=== PATIENT | female | born 1960 | race Caucasian/White ===

== ENCOUNTER → 2017-04-22 | Outpatient (CLI) | payer OTHER ==
--- NOTE | 2017-04-22 11:11 | REPMRS ---
Patient History The patient states she had a clinical breast exam in 04/09 Family history of breast cancer in paternal cousin under age 50 and prostate cancer in paternal uncle at age 50 or over. Digital Woman Screen Mammo: April 22, 2017 - Exam #: [id number] Bilateral CC and MLO view(s) were taken. Technologist: Leah Gonzalez, Technologist Prior study comparison: December 27, 2015, digital woman screen mammo performed at [facility]. October 18, 2014, digital woman screen mammo performed at [facility]. August 01, 2013, digital woman screen mammo performed at [facility]. FINDINGS: The breast tissue is almost entirely fat. There has been no change in the appearance of the mammogram from the prior studies. There is no interval development of dominant mass, architectural distortion, or clustered microcalcification typical of malignancy. ASSESSMENT: BI-RADS/ACR category 1 mammogram. Negative. Recommendation Routine screening mammogram of both breasts in 1 year (for women over age 40). This mammogram was interpreted with the aid of an FDA-approved computer-aided dectection system. Electronically Signed By: Diego Dang MD 04/22/17 1111
== END ==
LOC: M WHC 09:55
PROVIDERS: ATTEND Nurse Practitioner Family
DX: Z12.31 Encounter for screening mammogram for malignant neoplasm of breast (principal)

== ENCOUNTER → 2018-02-21 | Outpatient (CLI) | payer OTHER ==
[~2018-02-21] MED LIST: ISOVUE-370 76% 100ML VIAL (Q9967) As Ordered
== END ==
LOC: M RAD 14:16
DX: Z86.711 Personal history of pulmonary embolism (principal)
CPT/HCPCS: Q9967

== ENCOUNTER → 2018-04-25 | Outpatient (CLI) | payer OTHER | LOC: M WHC 09:56 | DX: Z12.31 Encounter for screening mammogram for malignant neoplasm of breast (principal) | CPT/HCPCS: 77067 ==

== ENCOUNTER → 2018-04-25 | Outpatient (REF) | payer OTHER ==
[2018-04-28 00:07] LABS: HPV HYBRID CAPTURE II Negative (Negative)
== END ==
LOC: M SFHCWAGY 10:40
DX: Z12.4 Encounter for screening for malignant neoplasm of cervix (principal)
CPT/HCPCS: 88142

== ENCOUNTER → 2019-06-07 | Outpatient (CLI) | payer OTHER ==
--- NOTE | 2019-06-07 16:31 | REPMRS ---
Patient History The patient states she had a clinical breast exam in May 2019.Family history of prostate cancer at age 50 or over in paternal uncle, breast cancer under age 50 in paternal cousin. No Hormone Replacement Therapy Digital Woman Screen Mammo: June 07, 2019 - Exam #: [id number] Bilateral CC and MLO view(s) were taken. Technologist: Gia Armijo, Technologist Prior study comparison: April 25, 2018, bilateral digital woman screen mammo performed at [facility]. April 22, 2017, digital woman screen mammo performed at [facility]. December 27, 2015, digital woman screen mammo performed at [facility]. FINDINGS: There are scattered fibroglandular densities. There has been no change in the appearance of the mammogram from the prior studies. There is a mild amount of scattered fibroglandular density which is fairly symmetric. There is no interval development of dominant mass, architectural distortion, or grouped microcalcification suggestive of malignancy. 3-D tomosynthesis shows no additional findings. Assessment: BI-RADS/ACR category 1 mammogram. Negative Mammogram. Recommendation Routine screening mammogram of both breasts in 1 year (for women over age 40). This patient's Lifetime Breast Cancer Risk is estimated at 8.3 %. This mammogram was interpreted with the aid of an FDA-approved computer-aided dectection system. Electronically Signed By: Diego Dang MD 06/07/19 [id number]
== END ==
LOC: M WHC 13:28
PROVIDERS: ATTEND Nurse Practitioner Family
DX: Z12.31 Encounter for screening mammogram for malignant neoplasm of breast (principal)

== ENCOUNTER → 2020-06-10 | Outpatient (CLI) | payer OTHER ==
--- NOTE | 2020-06-10 17:04 | REPMRS ---
Patient History The patient states she had a clinical breast exam in May 2020. Family history of prostate cancer at age 50 or over in paternal uncle, breast cancer under age 50 in paternal cousin. No Hormone Replacement Therapy 3D TOMOSYNTHESIS WAS PERFORMED. [facility] Volpara breast density a. Digital Woman Screen Mammo: June 10, 2020 - Exam #: [id number] Bilateral CC and MLO view(s) were taken. Technologist: Leslie Hahn, Technologist Prior study comparison: June 07, 2019, bilateral digital woman screen mammo performed at [facility]. April 25, 2018, bilateral digital woman screen mammo performed at [facility]. FINDINGS: There are scattered fibroglandular densities. There has been no change in the appearance of the mammogram from the prior studies. There is a mild amount of residual fibroglandular tissue which is fairly symmetric. There is no interval development of dominant mass, architectural distortion, or clustered microcalcification suggestive of malignancy. Assessment: BI-RADS/ACR category 1 mammogram. Negative Mammogram. Recommendation Routine screening mammogram in 1 year (for women over age 40). This mammogram was interpreted with the aid of an FDA-approved computer-aided dectection system. Electronically Signed By: Oscar Shah MD 06/10/20 [id number]
== END ==
LOC: M WHC 12:57
PROVIDERS: ATTEND Nurse Practitioner Family
DX: Z12.31 Encounter for screening mammogram for malignant neoplasm of breast (principal)

== ENCOUNTER → 2020-10-28 | Outpatient (CLI) | payer OTHER ==
[~2020-10-28] MED LIST changes: +ACET32TAB PO; +FAMO1TAB11 PO; +FLAX1CAP5 PO; +HYDR-3490 PO; +HYDR-3910 PO; -ISOVUE-370 76% 100ML VIAL (Q9967) As Ordered; +LOSA100T50 PO; +SPIR-10 PO; +VENTAER INH; +VITMTA PO
== END ==
LOC: M LABSMTC 09:35
PROVIDERS: ATTEND Anesthesiology
DX: Z01.812 Encounter for preprocedural laboratory examination (principal); Z20.822 Contact with and (suspected) exposure to COVID-19

== ENCOUNTER 2020-11-01 08:55 | Day surgery (SDC) | payer OTHER ==
[~2020-11-01] VITALS: Ht 170.2 cm; Wt 148.8 kg
[~2020-11-01 08:55] MED LIST changes: +NS 1,000 ML IV ONE
[2020-11-01 11:45] VITALS: BP 138/70
--- NOTE | 2020-11-01 12:00 | ROOR ---
Patient Name: Rebecca Sequeira Procedure Date: 11/01/2020 10:38 AM Date of : 1960 Age: 60 Room: [facility] Gender: Female Note Status: Finalized Procedure: Colonoscopy Indications: Screening for colorectal malignant neoplasm, Incidental - Hematochezia Providers: Maximus Robledo MD Referring MD: Michaelle Kong NP Requesting Provider: Medicines: Monitored Anesthesia Care Complications: No immediate complications. Procedure: Pre-Anesthesia Assessment: - Prior to the procedure, a History and Physical was performed, and patient medications and allergies were reviewed. The patient is competent. The risks and benefits of the procedure and the sedation options and risks were discussed with the patient. All questions were answered and informed consent was obtained. Patient identification and proposed procedure were verified by the physician, the nurse and the anesthesiologist in the procedure room. Mental Status Examination: alert and oriented. Airway Examination: normal oropharyngeal airway and neck mobility. Respiratory Examination: clear to auscultation. CV Examination: normal. Prophylactic Antibiotics: The patient does not require prophylactic antibiotics. Prior Anticoagulants: The patient has taken no previous anticoagulant or antiplatelet agents. ASA Grade Assessment: III - A patient with severe systemic disease. After reviewing the risks and benefits, the patient was deemed in satisfactory condition to undergo the procedure. The anesthesia plan was to use monitored anesthesia care (MAC). Immediately prior to administration of medications, the patient was re-assessed for adequacy to receive sedatives. The heart rate, respiratory rate, oxygen saturations, blood pressure, adequacy of pulmonary ventilation, and response to care were monitored throughout the procedure. The physical status of the patient was re-assessed after the procedure. The Colonoscope was introduced through the anus and advanced to the terminal ileum, with identification of the appendiceal orifice and IC valve. The colonoscopy was performed without difficulty. The patient tolerated the procedure well. The quality of the bowel preparation was good. The terminal ileum, ileocecal valve, appendiceal orifice, and rectum were photographed. Scope insertion time was 2 minutes. Scope withdrawal time was 9 minutes. The total duration of the procedure was 12 minutes. Findings: The digital rectal exam revealed a firm rectal mass palpated 3.0 cm from the anal verge. The mass was non-circumferential and located predominantly at the anterior bowel wall. The terminal ileum appeared normal. Two sessile polyps were found in the sigmoid colon and ascending colon. The polyps were 4 to 12 mm in size. These polyps were removed with a hot snare. Resection and retrieval were complete. Verification of patient identification for the specimen was done by the physician and nurse using the patient's name, date and medical record number. Estimated blood loss was minimal. A frond-like/villous, infiltrative and ulcerated non-obstructing large mass was found in the rectum and at 3 cm proximal to the anus. The mass was partially circumferential (involving one-third of the lumen circumference). The mass measured six cm in length. In addition, its diameter measured four mm. Oozing was present. Biopsies were taken with a cold forceps for histology. Non-bleeding external and internal hemorrhoids were found during retroflexion. The hemorrhoids were medium-sized. Impression: - Rectal mass 3.0 cm from the anal verge. - The examined portion of the ileum was normal. - Two 4 to 12 mm polyps in the sigmoid colon and in the ascending colon, removed with a hot snare. Resected and retrieved. - Likely malignant tumor in the rectum and at 3 cm proximal to the anus. Biopsied. - Non-bleeding external and internal hemorrhoids. Recommendation: - Patient has a contact number available for emergencies. The signs and symptoms of potential delayed complications were discussed with the patient. Return to normal activities tomorrow. Written discharge instructions were provided to the patient. - High fiber diet. - Continue present medications. - Await pathology results. - Refer to an oncologist in 1 week. - Refer to a radiation oncologist in 1 week. - Perform magnetic resonance imaging (MRI) with gadolinium or rectal EUS depending on ONcology evaluation. - Refer to a colo-rectal surgeon in 1 week. - Repeat colonoscopy in 1 year per protocol and for surveillance. - Telephone GI clinic for pathology results in 1 week. - Telephone GI clinic if symptomatic if persistent symptoms or new symptoms. - Return to primary care physician. Procedure Code(s): --- Professional --- 84969, Colonoscopy, flexible; with removal of tumor(s), polyp(s), or other lesion(s) by snare technique 15352, 59, Colonoscopy, flexible; with biopsy, single or multiple Diagnosis Code(s): --- Professional --- Z12.11, Encounter for screening for malignant neoplasm of colon K62.89, Other specified diseases of anus and rectum K64.8, Other hemorrhoids K63.5, Polyp of colon D49.0, Neoplasm of unspecified behavior of digestive system CPT copyright 2019 [employer]. All rights reserved. The codes documented in this report are preliminary and upon hitting coach review may be revised to meet current compliance requirements. Maximus Robledo MD Maximus Robledo MD 11/01/2020 12:00:40 PM Electronically signed by Maximus Robledo MD Number of Addenda: 0 Note Initiated On: 11/01/2020 10:38 AM Estimated Blood Loss: Estimated blood loss was minimal.
== END 2020-11-01 12:04 | disposition home or self-care (01) ==
LOC: M OPP 08:55
PROVIDERS: ATTEND Internal Medicine Gastroenterology
DX: Z12.11 Encounter for screening for malignant neoplasm of colon (principal); D12.2 Benign neoplasm of ascending colon; D12.5 Benign neoplasm of sigmoid colon; C20 Malignant neoplasm of rectum; K64.8 Other hemorrhoids; Z79.899 Other long term (current) drug therapy; Z88.8 Allergy status to other drugs, medicaments and biological substances; Z91.040 Latex allergy status; Z86.711 Personal history of pulmonary embolism; Z85.07 Personal history of malignant neoplasm of pancreas; Z80.1 Family history of malignant neoplasm of trachea, bronchus and lung; Z80.3 Family history of malignant neoplasm of breast; Z80.42 Family history of malignant neoplasm of prostate

== ENCOUNTER → 2020-11-15 | Outpatient (CLI) | payer OTHER ==
[~2020-11-15] MED LIST changes: +LORA-674 PO; -NS 1,000 ML IV ONE
--- NOTE | 2020-11-15 15:56 | RADONC.CN ---
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 She is seen for consideration of neoadjuvant chemoradiation. Diagnosis/Treatment History Oncologic History Presented to [facility] in August 2020 with several months of rectal pressure and intermittent rectal bleeding. She was referred to Dr. Robledo and underwent colonoscopy on 11/01/20 which revealed a mass 3 cm from the anal verge which was biopsied and showed adenocarcinoma. The mass was ulcerated and was 6cm in length. 11/18/20 MRI pelvis ([facility]) pending 11/22/20 CT chest abdomen pelvis pending She will seek surgical opinion @ [facility] TBD Interval History Here with her supportive daughters. 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 She has frequent BMs daily with intermittent passage of BRB and small clots. She a persistent feeling of rectal fullness. She also has some right sided back pain in the low back radiating into the right buttock which has been present for some years. Her appetite is good and she does not report any weight loss. Past Medical History: HTN Pancreatitis PE Past Surgical History: Hysterectomy Family History: Father lymphoma Mother lung cancer Social History: Non-smoker Non-drinker Allergies / Meds Allergies: Coded Allergies: latex (Verified Allergy, Severe, rash, eye swelling, 10/23/20) dexamethasone (Verified Allergy, Intermediate, hives, 10/23/20) neomycin (Verified Allergy, Intermediate, hives, 10/23/20) polymyxin B (Verified Allergy, Intermediate, hives, 10/23/20) Home Meds Reported Medications Loratadine (Loratadine) 10 Mg Tablet, 10 MG PO DAILY for allergy symptoms for 30 Days, #30 TAB 11/15/20 Acetaminophen (Acetaminophen) 325 Mg Tablet, 650 MG PO PRN PRN for PAIN, TAB 10/23/20 Multivitamins (Thera M Plus Tablet) 1 Each Tablet, 1 TAB PO DAILY, TAB 10/23/20 Flaxseed Oil (Flaxseed Oil) 1,000 Mg Capsule, 1 CAP PO DAILY, CAP 10/23/20 Albuterol Sulfate (Ventolin Hfa) 18 Gm Hfa.aer.ad, INH QID PRN for DYSPNEA, #1 INHALER 10/23/20 Famotidine (Famotidine) 20 Mg Tablet, 20 MG PO DAILY, TAB 10/23/20 Spironolactone (Spironolactone) 25 Mg Tablet, 25 MG PO BID, TAB 10/23/20 Hydralazine HCl (Hydralazine HCl) 25 Mg Tablet, 25 MG PO BID, TAB 10/23/20 Hydrochlorothiazide (Hydrochlorothiazide) 25 Mg Tablet, 25 MG PO DAILY, TAB 10/23/20 Losartan Potassium (Losartan Potassium) 100 Mg Tablet, 100 MG PO DAILY, TAB 10/23/20 Review of Systems Constitutional: Denies: Chills, Fever, Fatigue, Weight Loss Eyes: Denies: Pain HEENT: Denies: Head Aches Skin: Denies: Rash Pulmonary: Denies: Dyspnea, Cough Cardiovascular: Denies: Chest Pain, Palpitations Gastrointestinal: Reports: Hematochezia; Denies: Nausea, Vomiting, Abdominal Pain, Diarrhea Genitourinary: Denies: Dysuria, Frequency Musculoskeletal: Reports: Back pain; Denies: Neck pain Neurological: Denies: Weakness, Numbness Psych: Reports: Anxiety Vital Signs Ht 67" Wt 323 lbs BMI 51 T 97.4 P 77 RR 18 BP 113/70 O2 99% Pain 0 Fatigue 0 General Exam: Positive: Alert, Cooperative, No Acute Distress Eye Exam: Positive: PERRLA, EOMI ENT EXAM: Positive: Mucous membr. moist/pink, Pharynx Normal Neck Exam: Negative: Thyromegaly, Lymphadenopathy Chest Exam: Positive: Normal air movement; Negative: Rales, Rhonchi, Wheezing Heart Exam: Positive: Rate Normal, Regular Rhythm Abdomen Exam: Positive: Soft; Negative: Tenderness Extremity Exam: Positive: Other (Varicose veins); Negative: Edema Skin Exam: Positive: Nl turgor and temperature Neuro Exam: Positive: Normal Gait, Cranial Nerves 3-12 NL Psych Exam: Positive: Mental status NL Other Physical Findings Rectal exam: The external anus appears normal, anal tone is normal. There is no palpable mass involving the sphincter palpation. At 3 cm there is a polypoid fi rm non-tender mass present from 11:00-3:00 the mass extends proximally beyond the length of my finger (>8cm proximal to verge). There is bloody return on glove tip, with small clots noted. Diagnostic and Laboratory Diagnostic Review Radiologic images, relevant labs and pathology reports were personally reviewed and discussed with Ms. Sequeira. Assessment and Plan Impression Ms. 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 She is seen for consideration of neoadjuvant chemoradiation. Stage Pending MRI T2/3NXMX low-rectal adenocarcinoma Performance Status ECOG 1 Plan We had an extensive discussion with Ms. Sequeira regarding the diagnosis at hand and available therapeutic options. She is reasonably fit but having some BRBPR and clot passage ongoing from her infiltrative and friable low-rectal mass. I do not think her low back pain has anything to do with the cancer as she reports it predates diagnosis by some years, and is most consistent with sciatica/lumbar disc disease. She has scheduled MRI and CT scans to complete staging. The MRI is on 11/18/20 and the CTs 11/22/20. I will obtain the images and call her with the results. These will inform the initial approach to management. She does not yet have a surgical consultation scheduled. This is being arranged through Dr. Robledo's office. I told the patient and her daughters that based on my exam, location of the tumor and the endoscopy report that she would most likely receive neoadjuvant chemoradiation followed by neoadjuvant chemotherapy (anticipating T3 disease). ROLLY is the preferred pre-operative approach at [facility] where she is seeking a surgical opinion. The lesion is above the sphincter and hopefully is not too low or does not involve the levator complex, such that LAR is feasible. Chemoradiation is 28 treatments with concurrent xeloda. I would treat her prone given her large abdominal girth and low back pain. We discussed the logistics of receiving radiation therapy in detail including the need for a 1-time planning session. This can occur after the staging is known. After discussing the risks, benefits and alternatives to radiation therapy, Ms. Sequeira was amenable to pursuing radiotherapy if indicated by stage. All questions were answered to the patient's satisfaction. We instructed the patient that if there were any questions,concerns or changes in clinical status in the interim to contact us. Recommendations Complete staging If N+ or >=T3 then total neoadjuvant therapy favored starting with chemoradiation Will call patient with results of the MRI and CTs and to ascertain the timing of surgical consult @ [facility] Billing Statement Total time of [61] minutes was spent preparing for the visit [3], obtaining HPI [13], examining the patient [4], reviewing diagnostic tests [4], discussing management options [23], coordinating care [2], and writing this note [12]. FARHANA FORD MD Nov 15, 2020 15:56
--- NOTE | 2020-11-19 14:59 | RADENCPD ---
Date/Time of Encounter Date of Encounter: Nov 19, 2020 Time of Encounter: 14:56 Encounter Received call from Leigh Ann (daughter) hoping to discuss the results of her mom's MRI. Obtained report from [facility]. Appears to be T2N1 per report (NB no trans-serosal involvement, single right ischiorectal LN 7mm SA, no comment on CRM). I will attempt to obtain the images for my personal review. In the meantime I asked them to call me when they have a surgical consultation date for RPCI, then I will schedule simulation accordingly. For T2N1 stage IIIA low rectal cancers most would advocate for chemoradiation to start followed by FOLFOX (ROLLY approach). FARHANA FORD MD Nov 19, 2020 14:59
== END ==
LOC: M ONCR 13:02
PROVIDERS: ATTEND General Practice
DX: C20 Malignant neoplasm of rectum (principal); I10 Essential (primary) hypertension; M54.5 Low back pain; Z80.0 Family history of malignant neoplasm of digestive organs; Z80.8 Family history of malignant neoplasm of other organs or systems; Z86.711 Personal history of pulmonary embolism; Z88.1 Allergy status to other antibiotic agents; Z88.8 Allergy status to other drugs, medicaments and biological substances; Z90.710 Acquired absence of both cervix and uterus; Z91.040 Latex allergy status

== ENCOUNTER → 2020-11-22 | Outpatient (CLI) | payer OTHER ==
[~2020-11-22] MED LIST changes: +GASTROGRAFIN SOLUTION 30ML (Q9963) As Ordered ONE; +ISOVUE-370 76% 100ML VIAL As Ordered ONE
--- NOTE | 2020-11-26 10:39 | REP ---
INDICATION: RECTAL CA STAGING COMPARISON: 02/21/2018 TECHNIQUE: Axial contrast enhanced images from the thoracic inlet to the upper abdomen with coronal and sagittal reformations using 75 ml Isovue 370 intravenous contrast material. This CT examination was performed using the following dose reduction techniques: Automated exposure control, adjustment of mA and/or kv according to the patient's size, and use of iterative reconstruction technique. FINDINGS: Bilateral lung rojas are relatively well aerated, symmetric and essentially clear. Minimal chronic changes are noted. No suspicious nodule or mass lesion identified. No consolidation, effusion, or pneumothorax. Tracheobronchial tree is patent. No axillary, hilar, or mediastinal adenopathy. Thoracic aorta, pulmonary vasculature, and heart/pericardium are normal. Surrounding musculoskeletal structures without acute osseous abnormality. Limited upper abdomen demonstrates normal bilateral adrenal glands. IMPRESSION: No acute mediastinal or pleuroparenchymal process. No evidence for metastatic disease. <Electronically signed by James Godfrey > 11/26/20 [id number]
--- NOTE | 2020-11-28 21:59 | REP ---
INDICATION: RECTAL CA STAGING. COMPARISON: None TECHNIQUE: Axial contrast-enhanced images from the lung bases to the pubic symphysis using 100 cc Isovue 370 intravenous contrast material. Coronal and sagittal reformations along with delayed images of the abdomen obtained. This CT examination was performed using the following dose reduction techniques: Automated exposure control, adjustment of mA and/or kv according to the patient's size, and the use of iterative reconstruction technique. FINDINGS: Liver, spleen, pancreas, gallbladder, and bilateral adrenal glands are normal. The kidneys demonstrate bilateral cysts measuring up to 1.7 cm right kidney and 1.5 cm in the left kidney along with bilateral nonobstructing nephroliths measuring up to 6 mm lower pole right kidney and 4 mm midpole left kidney. The enteric system including stomach, small, and large bowel appears relatively normal. No evidence for obstruction or acute inflammatory process. Normal terminal ileum and appendix are identified in the right lower quadrant. The rectosigmoid demonstrates nonspecific mucosal thickening and small adjacent lymph nodes measuring up to 6 mm. Pelvis demonstrates normal bladder and evidence for prior hysterectomy. No ascites. No free air. No further intraperitoneal or retroperitoneal adenopathy. Abdominal aorta and vasculature appear normal. Musculoskeletal structures are intact and without acute osseous abnormality. IMPRESSION: 1. Kidneys demonstrate bilateral cysts and nonobstructing calculi. 2. The rectosigmoid demonstrates mild nonspecific mucosal thickening and few adjacent perirectal lymph nodes measuring up to 6 mm. 3. No further abnormalities are identified. No obvious evidence for significant adenopathy, fluid, obvious mass or metastatic disease. <Electronically signed by James Godfrey > 11/28/20 [id number]
== END ==
LOC: M RAD 15:24
PROVIDERS: ATTEND Internal Medicine Hematology & Oncology
DX: C20 Malignant neoplasm of rectum (principal); Q61.02 Congenital multiple renal cysts; N20.0 Calculus of kidney
CPT/HCPCS: 71260; 74177; Q9963; Q9967

== ENCOUNTER 2020-12-13 13:41 | Outpatient (RCR) | payer OTHER ==
[~2020-12-13 13:41] MED LIST changes: +CAPE1TAB2 PO; -GASTROGRAFIN SOLUTION 30ML (Q9963) As Ordered ONE; -ISOVUE-370 76% 100ML VIAL As Ordered ONE
[2020-12-23] MEDS ORDERED: PROC10TA4 PO (12:30)
== END 2020-12-21 ==
LOC: M ONCR 13:41
PROVIDERS: ATTEND General Practice
DX: C20 Malignant neoplasm of rectum (principal)

== ENCOUNTER → 2021-01-21 | Outpatient (RCR) | payer OTHER ==
[2021-01-17 16:16] LABS: AMORPHOUS SEDIMENT SMALL (NEGATIVE); APPEARANCE, URINE CLOUDY (CLEAR); BACTERIA, URINE AUTO 1+ (NEGATIVE); BILIRUBIN, URINE AUTO NEGATIVE (NEGATIVE); BLOOD, URINE BLOOD 1+ (NEGATIVE); COLOR, URINE YELLOW (YELLOW); GLUCOSE, URINE (UA) AUTO NEGATIVE (NEGATIVE); KETONE, URINE AUTO NEGATIVE (NEGATIVE); LEUKOCYTE ESTERASE, URINE AUTO NEGATIVE (NEGATIVE); MUCUS, URINE SMALL (NEGATIVE); NITRITE, URINE AUTO NEGATIVE (NEGATIVE); PROTEIN, URINE AUTO NEGATIVE (NEGATIVE); RBC, URINE AUTO 17 /HPF (0-3); SPECIFIC GRAVITY URINE AUTO 1.014 (1.002-1.035); SQUAMOUS EPITHELIAL CELL UR AU 0 /HPF (0-6); UROBILINOGEN, URINE AUTO 0.2 mg/dL (0.0-2.0); WBC, URINE AUTO 1 /HPF (0-3)
[~2021-01-21] MED LIST changes: +ACET650T61 PO; +BACT800T5 PO; +CHOL4PW PO; +CIPR500T39 PO; +CLON0.5T17 PO; +CLON0.5T2 PO; +DEXA4TA PO; +DEXT1TAB15 PO; +DICY1CAP8 PO; +DIPH2.5T15 PO; +FAMO20TA PO; +FLOM0.4C39 PO; +FLUC100T PO; +FOAM1BAN EXT; +FOAMPAD2 TP; +HYDR10TAB PO; +HYDR2TAB2 PO; +KETO10TAB PO; +KLON0.5T PO; +LIDO1CRE42 TOP; +LIDO5CRE6 TOP; +LOPE2TAB12 PO; +LORA-930 PO; +LOSA100T45 PO; -LOSA100T50 PO; +MAGN1TAB26 PO; +MAGN1TAB39 PO; +NITR-67 PO; +NITR2OI TOP; +ONDA-83 PO; +OXYC-517 PO; +OXYC1TAB23 PO; +POTA-151 PO; +POTA10TA17 PO; +PROAAER10 INH; +PROC10TA5 PO; +XANA0.25 PO; +XELO150T PO
== END ==
LOC: M ONCR 12-24 14:03
PROVIDERS: ATTEND General Practice
DX: C20 Malignant neoplasm of rectum (principal)

== ENCOUNTER 2021-01-31 14:30 | Outpatient (RCR) | payer OTHER ==
--- NOTE | 2021-01-22 15:11 | RADENCPD ---
Date/Time of Encounter Date of Encounter: Jan 22, 2021 Time of Encounter: 15:08 Encounter Rebecca asked to be evaluated today for increased vaginal itching and discharge. Her other symptoms, rectal pain and frequent bowel movements, have improved with increased pain medication and imodium/low residue diet, respectively. She agreed to a speculum exam to establish etiology of her pelvic symptoms. Kezia Irizarry RN chaperoned. Speculum exam revealed normal distal vaginal mucosa, superiorly there is pale mucositis which is patchy, there is no yeast. Thin clear discharge and mucus noted. Assessment: Vaginal mucositis from RT. Plan: Continue oxycodone She declined topical flagyl and lidocaine for this FARHANA FORD MD Jan 22, 2021 15:11
[~2021-01-31 14:30] MED LIST changes: -ACET650T61 PO; -BACT800T5 PO; -CHOL4PW PO; -CIPR500T39 PO; -CLON0.5T17 PO; -CLON0.5T2 PO; -DEXA4TA PO; -DEXT1TAB15 PO; -DICY1CAP8 PO; -DIPH2.5T15 PO; -FAMO20TA PO; -FLOM0.4C39 PO; -FLUC100T PO; -FOAM1BAN EXT; -FOAMPAD2 TP; -HYDR10TAB PO; -HYDR2TAB2 PO; -KETO10TAB PO; -KLON0.5T PO; -LIDO1CRE42 TOP; -LOPE2TAB12 PO; -LORA-930 PO; -LOSA100T45 PO; +LOSA100T50 PO; -MAGN1TAB26 PO; -MAGN1TAB39 PO; -NITR2OI TOP; -ONDA-83 PO; -OXYC1TAB23 PO; -POTA-151 PO; -POTA10TA17 PO; -PROAAER10 INH; +PROC10TA4 PO; -PROC10TA5 PO; -XANA0.25 PO; -XELO150T PO
[2021-02-04] MEDS ORDERED: OXYC-517 PO (15:28)
[2021-02-10] MEDS ORDERED: XELO150T PO (09:37)
[2021-02-10] MEDS ORDERED: CAPE1TAB2 PO (09:37)
[2021-02-11] MEDS ORDERED: DEXA4TA PO (08:27)
[2021-02-11] MEDS ORDERED: PROC10TA4 PO (08:27)
[2021-02-12] MEDS ORDERED: OXYC-517 PO (14:35)
[2021-02-12] MEDS ORDERED: NITR2OI TOP (14:35)
[2021-02-21] MEDS ORDERED: CAPE1TAB2 PO (13:05)
== END 2021-02-20 ==
LOC: M ONCR 14:30
PROVIDERS: ATTEND General Practice
DX: C20 Malignant neoplasm of rectum (principal)
CPT/HCPCS: 77307; 77334; 77336; 77385; 77387; 77412; G0463

== ENCOUNTER → 2021-02-12 | Outpatient (CLI) | payer OTHER ==
[~2021-02-12] MED LIST changes: +DEXA4TA PO; +NITR2OI TOP; +XELO150T PO
--- NOTE | 2021-02-12 14:00 | RADENCPD ---
Date/Time of Encounter Date of Encounter: Feb 12, 2021 Time of Encounter: 13:51 Encounter Rebecca came in for a brief follow up. She has been diarrhea free for 3 days. No imodium use. She still has the rectal pain, but it is subsiding, using the oxycodone less. She complains of urge to move her bowels, but no BM present. She has developed hemorrhoids which are painful when she does defecate. 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 She is using barrier creams and keeping the area dry. Her anus has a conglomerate of hemorrhoids from 3:00-11:00. There is also internal hemorrhoidal tissue prolapsing. I counseled that she now needs to bulk her stool with fiber supplementation and minimize anal pressure, by limiting time spent attempting to defecate and or squatting while defecating. I will give her some nifedipine ointment for the hemorrhoids, I will also refill the oxycodone. F/u in 2 weeks or sooner if needed. FARHANA FORD MD Feb 12, 2021 14:00
== END ==
LOC: M ONCR 12:55
PROVIDERS: ATTEND General Practice
DX: C20 Malignant neoplasm of rectum (principal); R19.7 Diarrhea, unspecified; L59.8 Other specified disorders of the skin and subcutaneous tissue related to radiation; K64.8 Other hemorrhoids

== ENCOUNTER → 2021-02-28 | Outpatient (CLI) | payer OTHER | LOC: M ONCR 14:17 | PROVIDERS: ATTEND General Practice | DX: C20 Malignant neoplasm of rectum (principal); Z92.3 Personal history of irradiation ==

== ENCOUNTER → 2021-03-10 | Outpatient (CLI) | payer OTHER ==
[~2021-03-10] MED LIST changes: +BACT800T5 PO; +CLON0.5T17 PO; +FLUC100T PO; +FOAM1BAN EXT; +FOAMPAD2 TP; +KLON0.5T PO; +LIDO1CRE42 TOP; +MAGN1TAB39 PO; +ONDA-83 PO; +XANA0.25 PO
--- NOTE | 2021-03-10 12:31 | RADENCPD ---
Date/Time of Encounter Date of Encounter: Mar 10, 2021 Time of Encounter: 12:28 Encounter Rebecca came in today for a skin check. She complains of increasing discomfort in the crease of the abdominal pannus and groins BL. On exam she has erythematous and malodorous rash in the panniculus. There are scattered papules without active bleeding. There is copious drainage. This looks fungal versus secondarily bacterial infection. Will treat empirically and see in 1 week. Plan: Bactrim DS 1 tab BID (to cover for CA MRSA given chemo) Fluconazole 1 mg daily Oxycodone 5 mg q4h PRN Zofran TID PRN Mepilex to pannus daily [place] soaks PRN FARHANA FORD MD Mar 10, 2021 12:31
== END ==
LOC: M ONCR 11:33
PROVIDERS: ATTEND General Practice
DX: C20 Malignant neoplasm of rectum (principal); R21 Rash and other nonspecific skin eruption; Z92.3 Personal history of irradiation

== ENCOUNTER → 2021-03-17 | Outpatient (CLI) | payer OTHER ==
--- NOTE | 2021-03-17 14:04 | RADENCPD ---
Date/Time of Encounter Date of Encounter: Mar 17, 2021 Time of Encounter: 14:02 Encounter Rebecca came in for a skin check today. She has been taking the bactrim and fluconazole and notes improvement in her symptoms On exam the infection in the pannus crease is improving. There are less vesicles and drainage, skin is still red. Faint excoriated areas in the right inguinal crease. I will continue her antibiotics another 7 days and [facility] to manage her pannus moisture. FARHANA FORD MD Mar 17, 2021 14:04
== END ==
LOC: M ONCR 12:52
PROVIDERS: ATTEND General Practice
DX: C20 Malignant neoplasm of rectum (principal); L57.9 Skin changes due to chronic exposure to nonionizing radiation, unspecified; Z92.3 Personal history of irradiation

== ENCOUNTER → 2021-03-18 | Outpatient (POV) | payer OTHER ==
[~2021-03-18] VITALS: Ht 170.2 cm; Wt 140.4 kg
[~2021-03-18] MED LIST changes: +FLOM0.4C39 PO; +HYDR2TAB2 PO
[2021-03-18 13:10] VITALS: BP 130/74
--- NOTE | 2021-03-20 12:46 | IRPN ---
[facility] IR Progress Note IR Progress Note DATE: Mar 18, 2021 FOLLOW-UP: Doing well status post port placement. Patient denies fevers, chills, pain or discharge at site. Port used without any issues. ON EXAMINATION: Port site appears to be healing well. No redness, swelling or fluctuance at the site. Glue and strips are still on and will fall off by themselves. IMPRESSION: Doing well status post port placement. No further follow-up scheduled unless initiated by patient and/or referring provider. Thank you for this referral Allergies Coded Allergies: latex (Verified Allergy, Intermediate, rash, eye swelling, 03/04/21) neomycin (Verified Allergy, Mild, hives, 03/04/21) polymyxin B (Verified Allergy, Mild, hives, 03/04/21) amlodipine (Verified Adverse Reaction, Intermediate, SWELLING IN FEET, 12/23/20) VS,Fishbone, I+O VS, Fishbone, I+O Vital Signs Date Time Temp Pulse Resp B/P (MAP) Pulse Ox O2 Delivery O2 Flow Rate FiO2 03/18/21 13:10 97.2 83 20 130/74 (92) 97 Room Air GUI HEADLEY MD Mar 20, 2021 12:46
== END ==
LOC: M IRPOV 13:02
PROVIDERS: ATTEND Radiology Diagnostic Radiology
DX: Z45.2 Encounter for adjustment and management of vascular access device (principal); Z88.1 Allergy status to other antibiotic agents; Z91.040 Latex allergy status

== ENCOUNTER 2021-04-09 12:12 | Inpatient (IN) | payer OTHER ==
[~2021-04-09] VITALS: Ht 170.2 cm; Wt 133.3 kg
[~2021-04-09 12:12] MED LIST changes: -ACET650T61 PO; -CLON0.5T2 PO; -DEXT1TAB15 PO; -FAMO20TA PO; -FLUC100T PO; +FLUC100T3 PO; -HYDR10TAB PO; -LOPE2TAB12 PO; -LORA-930 PO; +LOSA100T45 PO; -LOSA100T50 PO; -PROAAER10 INH; -PROC10TA4 PO; +PROC10TA5 PO
[2021-04-09] MEDS ORDERED: NS 1,000 ML IV ONE (15:10)
[2021-04-09] MEDS ORDERED: SODIUM CHLORIDE 0.9% INJ 10 ML SYR IV PRN (15:15)
[2021-04-09 16:00] LABS: BASO % 0.6 % (0.0-1.0); EOS % 0.6 % (0.0-3.0); HEMATOCRIT 39.1 % (36.0-47.0); HEMOGLOBIN 13.5 g/dl (12.0-15.5); LYMPH # 0.5 10^3/uL (1.5-5.0); LYMPH % 13.1 % (24.0-44.0); MEAN CORPUSCULAR HEMOGLOBIN 30.3 pg (27.0-33.0); MEAN CORPUSCULAR HGB CONC 34.5 g/dl (32.0-36.5); MEAN CORPUSCULAR VOLUME 87.9 fl (80.0-96.0); MONO # 0.8 10^3/uL (0.0-0.8); MONO % 20.9 % (2.0-8.0); NEUTROPHILS # 2.3 10^3/uL (1.5-8.5); NEUTROPHILS % 64.2 % (36.0-66.0); PLATELET COUNT, AUTOMATED 200 10^3/uL (150-450); RED BLOOD COUNT 4.45 10^6/uL (4.00-5.40); WHITE BLOOD COUNT 3.6 10^3/uL (4.0-10.0)
[2021-04-09 16:56] LABS: ALBUMIN 1.9 GM/DL (3.2-5.2); ALT/SGPT 62 U/L (12-78); BILIRUBIN,DIRECT 0.2 MG/DL (0.0-0.2); BILIRUBIN,TOTAL 0.5 MG/DL (0.2-1.0); BLOOD UREA NITROGEN 19 MG/DL (7-18); CARBON DIOXIDE LEVEL 21 MEQ/L (21-32); CHLORIDE LEVEL 113 MEQ/L (98-107); CREATININE FOR GFR 0.41 MG/DL (0.55-1.30); GLOMERULAR FILTRATION RATE > 60.0 (>51); GLUCOSE, FASTING 89 MG/DL (70-100); LIPASE 266 U/L (73-393); MAGNESIUM LEVEL 0.9 MG/DL (1.8-2.4); POTASSIUM SERUM 1.9 MEQ/L (3.5-5.1); SODIUM LEVEL 145 MEQ/L (136-145); TOTAL PROTEIN 4.2 GM/DL (6.4-8.2)
[2021-04-09] MEDS ORDERED: MAGNESIUM SULFATE IN WATER 2 GM in IV 1 EA IV STA ×2 (17:03)
[2021-04-09] MEDS ORDERED: KCL 10MEQ/100ML SWI (KRUN) 10 MEQ in IV 1 EA IV ONE (17:05)
[2021-04-09] MEDS ORDERED: ISOVUE-370 76% 100ML VIAL As Ordered ONE (17:44)
[2021-04-09] MEDS ORDERED: SPIRONOLACTONE 12.5MG PER 1/2 TABLET PO ONE (18:30)
[2021-04-09 18:38] LABS: BLOOD UREA NITROGEN 24 MG/DL (7-18); CALCIUM LEVEL 8.5 MG/DL (8.5-10.1); CARBON DIOXIDE LEVEL 28 MEQ/L (21-32); CHLORIDE LEVEL 103 MEQ/L (98-107); CREATININE FOR GFR 0.75 MG/DL (0.55-1.30); GLOMERULAR FILTRATION RATE > 60.0 (>51); GLUCOSE, FASTING 108 MG/DL (70-100); POTASSIUM SERUM 2.9 MEQ/L (3.5-5.1); SODIUM LEVEL 139 MEQ/L (136-145)
[2021-04-09] MEDS: MAG SULF 1GM/100ML (MAG RUN) X 2 DOSES (2GM TOTAL) IV SCH ×4 (18:41→19:00)
[2021-04-09 18:47] LABS: INR 1.16; PARTIAL THROMBOPLASTIN TIME 23.1 SECONDS (25.9-37.0); PROTHROMBIN TIME 15.3 SECONDS (12.7-14.5)
[2021-04-09] MEDS ORDERED: LORazepam 2 MG/ML VIAL IV PRN (19:05)
[2021-04-09] MEDS ORDERED: ACET650T61 PO (20:24)
[2021-04-09] MEDS ORDERED: HYDR10TAB PO (20:24)
[2021-04-09] MEDS ORDERED: FAMO20TA PO (20:24)
[2021-04-09] MEDS ORDERED: DEXT1TAB15 PO (20:24)
[2021-04-09] MEDS ORDERED: CLON0.5T2 PO (20:24)
[2021-04-09] MEDS ORDERED: PROAAER10 INH (20:24)
[2021-04-09] MEDS ORDERED: LOPE2TAB12 PO (20:24)
[2021-04-09] MEDS ORDERED: LORA-930 PO (20:24)
[2021-04-09] MEDS ORDERED: HOME MED LIST COMPLETE! XX SCH (20:25)
[2021-04-09] MEDS: KCL 10MEQ/100ML SWI (KRUN) 10 MEQ in IV 1 EA IV SCH ×3 (21:06→23:15)
[2021-04-09 22:51] LABS: BLOOD UREA NITROGEN 24 MG/DL (7-18); CALCIUM LEVEL 8.1 MG/DL (8.5-10.1); CARBON DIOXIDE LEVEL 30 MEQ/L (21-32); CHLORIDE LEVEL 101 MEQ/L (98-107); CREATININE FOR GFR 0.73 MG/DL (0.55-1.30); GLOMERULAR FILTRATION RATE > 60.0 (>51); GLUCOSE, FASTING 114 MG/DL (70-100); MAGNESIUM LEVEL 2.2 MG/DL (1.8-2.4); PHOSPHORUS LEVEL 2.4 MG/DL (2.5-4.9); SODIUM LEVEL 139 MEQ/L (136-145)
[2021-04-09 22:55] VITALS: BP 112/68
[2021-04-09] MEDS ORDERED: cefTRIAXone SOD 1 GM in D5W MINI-BAG PLUS 50 ML IV SCH (23:00)
[2021-04-10] VITALS (8 sets, daily range): BP systolic 101–145; BP diastolic 73–95
[2021-04-10] MEDS: KCL 10MEQ/100ML SWI (KRUN) 10 MEQ in IV 1 EA IV SCH ×5 (00:28→18:19)
[2021-04-10] MEDS ORDERED: cefTRIAXone SOD 1 GM in D5W MINI-BAG PLUS 50 ML IV SCH (02:00)
[2021-04-10] MEDS: DICYCLOMINE 10 MG CAP PO PRN (02:13)
[2021-04-10] MEDS: POTASSIUM CHLORIDE INJ 40 MEQ in NS 0.45% 1,000 ML IV SCH ×3 (03:15→18:20)
[2021-04-10 03:56] LABS: BLOOD UREA NITROGEN 23 MG/DL (7-18); CARBON DIOXIDE LEVEL 29 MEQ/L (21-32); CHLORIDE LEVEL 104 MEQ/L (98-107); CREATININE FOR GFR 0.82 MG/DL (0.55-1.30); GLOMERULAR FILTRATION RATE > 60.0 (>51); GLUCOSE, FASTING 133 MG/DL (70-100); POTASSIUM SERUM 3.1 MEQ/L (3.5-5.1); SODIUM LEVEL 140 MEQ/L (136-145)
[2021-04-10 07:26] LABS: HEMATOCRIT 35.5 % (36.0-47.0); HEMOGLOBIN 12.2 g/dl (12.0-15.5); MEAN CORPUSCULAR HEMOGLOBIN 30.5 pg (27.0-33.0); MEAN CORPUSCULAR HGB CONC 34.4 g/dl (32.0-36.5); MEAN CORPUSCULAR VOLUME 88.8 fl (80.0-96.0); PLATELET COUNT, AUTOMATED 187 10^3/uL (150-450); WHITE BLOOD COUNT 3.2 10^3/uL (4.0-10.0)
[2021-04-10 08:33] LABS: ALBUMIN 2.7 GM/DL (3.2-5.2); ALT/SGPT 79 U/L (12-78); BILIRUBIN,TOTAL 0.6 MG/DL (0.2-1.0); BLOOD UREA NITROGEN 22 MG/DL (7-18); CALCIUM LEVEL 8.3 MG/DL (8.5-10.1); CARBON DIOXIDE LEVEL 28 MEQ/L (21-32); CHLORIDE LEVEL 105 MEQ/L (98-107); CREATININE FOR GFR 0.67 MG/DL (0.55-1.30); GLOMERULAR FILTRATION RATE > 60.0 (>51); GLUCOSE, FASTING 118 MG/DL (70-100); POTASSIUM SERUM 3.1 MEQ/L (3.5-5.1); SODIUM LEVEL 140 MEQ/L (136-145); TOTAL PROTEIN 5.3 GM/DL (6.4-8.2)
[2021-04-10] MEDS ORDERED: SPIRONOLACTONE 25 MG TAB PO SCH (09:00)
[2021-04-10] MEDS ORDERED: PANTOPRAZOLE 40MG VIAL (C9113 PER 1) IV SCH (09:00)
[2021-04-10] MEDS ORDERED: fentaNYL 250 MCG/5 ML INJECTION ONE (09:56)
[2021-04-10] MEDS ORDERED: LIDOCAINE 2% 100MG/5ML SDV (FOR ANES.) ONE (09:57)
[2021-04-10] MEDS ORDERED: ONDANSETRON 4MG/2ML VIAL ONE (09:57)
[2021-04-10] MEDS ORDERED: MIDAZOLAM INJ 2MG/2ML VIAL (J2250 PER 1MG) ONE (09:57)
[2021-04-10] MEDS ORDERED: dexameTHASONE 4 MG/ML 1ML VIAL (J1100 PER 1MG) ONE (09:57)
[2021-04-10] MEDS ORDERED: propofoL 200 MG/20 ML VIAL ONE (09:57)
[2021-04-10] MEDS ORDERED: KCL 10MEQ/100ML SWI (KRUN) 10 MEQ in IV 1 EA IV SCH (12:00)
[2021-04-10] MEDS ORDERED: CONRAY-60 60% 50ML VIAL (Q9961) As Ordered ONE (12:25)
[2021-04-10] MEDS ORDERED: ROCURONIUM BROMIDE 50 MG/5 ML VIAL ONE (12:45)
[2021-04-10] MEDS ORDERED: SUGAMMADEX SODIUM 500 MG/5 ML VIAL (BRIDION) ONE (13:14)
[2021-04-10] MEDS ORDERED: PERCOCET 5MG/325MG TAB PO PRN (14:00)
[2021-04-10] MEDS ORDERED: fentaNYL 100 MCG/2 ML INJECTION IV PRN (14:00)
[2021-04-10] MEDS ORDERED: ONDANSETRON 4MG/2ML VIAL IV PRN (14:00)
[2021-04-10] MEDS ORDERED: METOCLOPRAMIDE INJ 10MG/2ML VIAL (J2765 PER 1) IV PRN (14:00)
[2021-04-10] MEDS ORDERED: LR 1,000 ML IV SCH (14:00)
[2021-04-10 17:47] LABS: BLOOD UREA NITROGEN 23 MG/DL (7-18); CALCIUM LEVEL 8.4 MG/DL (8.5-10.1); CARBON DIOXIDE LEVEL 23 MEQ/L (21-32); CHLORIDE LEVEL 106 MEQ/L (98-107); CREATININE FOR GFR 0.71 MG/DL (0.55-1.30); GLOMERULAR FILTRATION RATE > 60.0 (>51); GLUCOSE, FASTING 124 MG/DL (70-100); POTASSIUM SERUM 4.1 MEQ/L (3.5-5.1); SODIUM LEVEL 137 MEQ/L (136-145)
[2021-04-10] MEDS ORDERED: clonazePAM 0.5 MG TAB PO PRN (20:15)
[2021-04-10 20:35] LABS: BLOOD UREA NITROGEN 22 MG/DL (7-18); CALCIUM LEVEL 7.9 MG/DL (8.5-10.1); CARBON DIOXIDE LEVEL 28 MEQ/L (21-32); CHLORIDE LEVEL 109 MEQ/L (98-107); CREATININE FOR GFR 0.84 MG/DL (0.55-1.30); GLOMERULAR FILTRATION RATE > 60.0 (>51); GLUCOSE, FASTING 116 MG/DL (70-100); POTASSIUM SERUM 3.8 MEQ/L (3.5-5.1); SODIUM LEVEL 142 MEQ/L (136-145)
[2021-04-10] MEDS: **hydrALAZINE** 10 MG TAB PO SCH (21:00)
[2021-04-10] MEDS: SPIRONOLACTONE 25 MG TAB PO SCH ×2 (21:00→21:22)
[2021-04-10] MEDS: ENOXAPARIN 40MG/0.4ML SYRINGE (J1650 PER 10MG) SC SCH (21:21)
[2021-04-10] MEDS: LOPERAMIDE 2 MG CAPLET PO PRN (22:26)
[2021-04-11] MEDS: LOPERAMIDE 2 MG CAPLET PO PRN ×3 (00:16→20:27)
[2021-04-11] MEDS: DICYCLOMINE 10 MG CAP PO PRN ×3 (00:26→20:27)
[2021-04-11 02:00] VITALS: BP 115/78
[2021-04-11] MEDS: MORPHINE 2 MG/ML 1ML VIAL (J2270) IV PRN ×3 (04:27→21:51)
[2021-04-11 05:00] VITALS: BP 113/65
[2021-04-11 08:09] LABS: HEMATOCRIT 35.8 % (36.0-47.0); HEMOGLOBIN 12.3 g/dl (12.0-15.5); MEAN CORPUSCULAR HEMOGLOBIN 30.4 pg (27.0-33.0); MEAN CORPUSCULAR HGB CONC 34.4 g/dl (32.0-36.5); MEAN CORPUSCULAR VOLUME 88.4 fl (80.0-96.0); PLATELET COUNT, AUTOMATED 206 10^3/uL (150-450); RED BLOOD COUNT 4.05 10^6/uL (4.00-5.40); WHITE BLOOD COUNT 2.9 10^3/uL (4.0-10.0)
[2021-04-11 08:32] LABS: ALBUMIN 2.7 GM/DL (3.2-5.2); ALT/SGPT 72 U/L (12-78); BILIRUBIN,TOTAL 0.5 MG/DL (0.2-1.0); BLOOD UREA NITROGEN 22 MG/DL (7-18); CALCIUM LEVEL 8.5 MG/DL (8.5-10.1); CARBON DIOXIDE LEVEL 23 MEQ/L (21-32); CHLORIDE LEVEL 110 MEQ/L (98-107); GLOMERULAR FILTRATION RATE > 60.0 (>51); GLUCOSE, FASTING 114 MG/DL (70-100); MAGNESIUM LEVEL 1.7 MG/DL (1.8-2.4); POTASSIUM SERUM 3.1 MEQ/L (3.5-5.1); SODIUM LEVEL 140 MEQ/L (136-145); TOTAL PROTEIN 5.6 GM/DL (6.4-8.2)
[2021-04-11] MEDS: **hydrALAZINE** 10 MG TAB PO SCH ×2 (09:00→20:27)
[2021-04-11] MEDS: MAGNESIUM OXIDE 400MG TAB (MAG-OX) PO SCH (09:09)
[2021-04-11] MEDS: SPIRONOLACTONE 25 MG TAB PO SCH ×2 (09:09→20:27)
[2021-04-11] MEDS: MULTIVITAMINS/MINERALS THERAP 1 TAB PO SCH (09:09)
[2021-04-11] MEDS: FAMOTIDINE 20 MG TAB PO SCH (09:09)
[2021-04-11 10:00] VITALS: BP 106/74
[2021-04-11] MEDS ORDERED: MAG SULF 1GM/100ML (MAG RUN) 1 GM in IV 1 EA IV ONE (10:00)
[2021-04-11] MEDS: KCL 10MEQ/100ML SWI (KRUN) 10 MEQ in IV 1 EA IV SCH ×4 (11:38→16:05)
[2021-04-11 14:00] VITALS: BP 107/75
[2021-04-11 14:01] LABS: BLOOD UREA NITROGEN 23 MG/DL (7-18); CALCIUM LEVEL 8.4 MG/DL (8.5-10.1); CARBON DIOXIDE LEVEL 22 MEQ/L (21-32); CHLORIDE LEVEL 110 MEQ/L (98-107); CREATININE FOR GFR 0.92 MG/DL (0.55-1.30); GLOMERULAR FILTRATION RATE > 60.0 (>51); GLUCOSE, FASTING 119 MG/DL (70-100); POTASSIUM SERUM 3.5 MEQ/L (3.5-5.1); SODIUM LEVEL 141 MEQ/L (136-145)
[2021-04-11] MEDS: POTASSIUM CHLORIDE INJ 40 MEQ in NS 0.45% 1,000 ML IV SCH (16:05)
[2021-04-11 18:00] VITALS: BP 122/79
[2021-04-11] MEDS: ENOXAPARIN 40MG/0.4ML SYRINGE (J1650 PER 10MG) SC SCH (20:26)
[2021-04-11 21:51] VITALS: BP 128/83
[2021-04-11] MEDS: RAMELTEON 8 MG TAB (ROZEREM) PO PRN (21:51)
[2021-04-12] MEDS: POTASSIUM CHLORIDE INJ 40 MEQ in NS 0.45% 1,000 ML IV SCH ×4 (01:33→18:02)
[2021-04-12 02:00] VITALS: BP 118/85
[2021-04-12 06:00] VITALS: BP 115/77
[2021-04-12 07:08] LABS: HEMATOCRIT 35.5 % (36.0-47.0); HEMOGLOBIN 12.1 g/dl (12.0-15.5); MEAN CORPUSCULAR HEMOGLOBIN 30.6 pg (27.0-33.0); MEAN CORPUSCULAR HGB CONC 34.1 g/dl (32.0-36.5); MEAN CORPUSCULAR VOLUME 89.9 fl (80.0-96.0); PLATELET COUNT, AUTOMATED 201 10^3/uL (150-450); RED BLOOD COUNT 3.95 10^6/uL (4.00-5.40)
[2021-04-12 07:31] LABS: ALBUMIN 2.6 GM/DL (3.2-5.2); ALT/SGPT 63 U/L (12-78); BILIRUBIN,TOTAL 0.4 MG/DL (0.2-1.0); BLOOD UREA NITROGEN 21 MG/DL (7-18); CARBON DIOXIDE LEVEL 20 MEQ/L (21-32); CHLORIDE LEVEL 115 MEQ/L (98-107); CREATININE FOR GFR 0.84 MG/DL (0.55-1.30); GLOMERULAR FILTRATION RATE > 60.0 (>51); GLUCOSE, FASTING 115 MG/DL (70-100); MAGNESIUM LEVEL 1.8 MG/DL (1.8-2.4); POTASSIUM SERUM 3.6 MEQ/L (3.5-5.1); SODIUM LEVEL 143 MEQ/L (136-145)
[2021-04-12] MEDS: MULTIVITAMINS/MINERALS THERAP 1 TAB PO SCH (09:43)
[2021-04-12] MEDS: SPIRONOLACTONE 25 MG TAB PO SCH ×2 (09:44→20:38)
[2021-04-12] MEDS: LOPERAMIDE 2 MG CAPLET PO PRN ×7 (09:44→20:45)
[2021-04-12] MEDS: MAGNESIUM OXIDE 400MG TAB (MAG-OX) PO SCH (09:44)
[2021-04-12] MEDS: FAMOTIDINE 20 MG TAB PO SCH (09:44)
[2021-04-12] MEDS: **hydrALAZINE** 10 MG TAB PO SCH ×2 (09:45→20:38)
[2021-04-12 10:00] VITALS: BP 129/73
[2021-04-12] MEDS: MORPHINE 2 MG/ML 1ML VIAL (J2270) IV PRN (11:27)
[2021-04-12] MEDS: oxyBUTYnin 5 MG TAB PO PRN (13:24)
[2021-04-12 14:00] VITALS: BP 138/76
[2021-04-12 18:00] VITALS: BP 113/69
[2021-04-12] MEDS: ENOXAPARIN 40MG/0.4ML SYRINGE (J1650 PER 10MG) SC SCH (20:45)
[2021-04-12 22:00] VITALS: BP 110/69
[2021-04-13] MEDS: LOPERAMIDE 2 MG CAPLET PO PRN ×7 (00:08→20:35)
[2021-04-13] MEDS: oxyBUTYnin 5 MG TAB PO PRN ×3 (00:08→20:34)
[2021-04-13] MEDS: FAMOTIDINE 20 MG TAB PO PRN ×2 (00:08→20:34)
[2021-04-13] MEDS: RAMELTEON 8 MG TAB (ROZEREM) PO PRN (00:08)
[2021-04-13] MEDS: POTASSIUM CHLORIDE INJ 40 MEQ in NS 0.45% 1,000 ML IV SCH ×3 (02:24→20:33)
[2021-04-13] MEDS: DICYCLOMINE 10 MG CAP PO PRN ×2 (05:33→15:24)
[2021-04-13 06:00] VITALS: BP 129/79
[2021-04-13 08:27] LABS: HEMATOCRIT 32.9 % (36.0-47.0); HEMOGLOBIN 11.1 g/dl (12.0-15.5); MEAN CORPUSCULAR HEMOGLOBIN 30.8 pg (27.0-33.0); MEAN CORPUSCULAR HGB CONC 33.7 g/dl (32.0-36.5); MEAN CORPUSCULAR VOLUME 91.4 fl (80.0-96.0); PLATELET COUNT, AUTOMATED 176 10^3/uL (150-450); WHITE BLOOD COUNT 2.5 10^3/uL (4.0-10.0)
[2021-04-13] MEDS: **hydrALAZINE** 10 MG TAB PO SCH ×2 (09:00→20:33)
[2021-04-13 09:01] LABS: ALBUMIN 2.3 GM/DL (3.2-5.2); ALT/SGPT 61 U/L (12-78); BILIRUBIN,TOTAL 0.5 MG/DL (0.2-1.0); BLOOD UREA NITROGEN 17 MG/DL (7-18); CALCIUM LEVEL 8.1 MG/DL (8.5-10.1); CARBON DIOXIDE LEVEL 21 MEQ/L (21-32); CHLORIDE LEVEL 115 MEQ/L (98-107); CREATININE FOR GFR 0.82 MG/DL (0.55-1.30); GLOMERULAR FILTRATION RATE > 60.0 (>51); GLUCOSE, FASTING 113 MG/DL (70-100); MAGNESIUM LEVEL 1.8 MG/DL (1.8-2.4); POTASSIUM SERUM 3.8 MEQ/L (3.5-5.1); SODIUM LEVEL 142 MEQ/L (136-145)
[2021-04-13] MEDS: SPIRONOLACTONE 25 MG TAB PO SCH ×2 (09:38→20:33)
[2021-04-13] MEDS: MULTIVITAMINS/MINERALS THERAP 1 TAB PO SCH (09:38)
[2021-04-13] MEDS: FAMOTIDINE 20 MG TAB PO SCH (09:38)
[2021-04-13] MEDS: MAGNESIUM OXIDE 400MG TAB (MAG-OX) PO SCH (09:45)
[2021-04-13 10:00] VITALS: BP 113/73
[2021-04-13 14:00] VITALS: BP 118/74
[2021-04-13 18:00] VITALS: BP 118/73
[2021-04-13] MEDS: ENOXAPARIN 40MG/0.4ML SYRINGE (J1650 PER 10MG) SC SCH (20:34)
[2021-04-13 22:00] VITALS: BP 111/63
[2021-04-14] MEDS: RAMELTEON 8 MG TAB (ROZEREM) PO PRN (00:13)
[2021-04-14] MEDS: LOPERAMIDE 2 MG CAPLET PO PRN ×5 (00:13→18:54)
[2021-04-14] MEDS: KCL 20MEQ IN 0.45NS 1000ML 1,000 ML IV SCH ×3 (04:33→20:15)
[2021-04-14 06:00] VITALS: BP 114/78
[2021-04-14 07:26] LABS: HEMATOCRIT 32.1 % (36.0-47.0); HEMOGLOBIN 10.8 g/dl (12.0-15.5); MEAN CORPUSCULAR HEMOGLOBIN 30.6 pg (27.0-33.0); MEAN CORPUSCULAR HGB CONC 33.6 g/dl (32.0-36.5); MEAN CORPUSCULAR VOLUME 90.9 fl (80.0-96.0); PLATELET COUNT, AUTOMATED 174 10^3/uL (150-450); RED BLOOD COUNT 3.53 10^6/uL (4.00-5.40); WHITE BLOOD COUNT 2.6 10^3/uL (4.0-10.0)
[2021-04-14 07:54] LABS: ALBUMIN 2.3 GM/DL (3.2-5.2); ALT/SGPT 63 U/L (12-78); BILIRUBIN,TOTAL 0.5 MG/DL (0.2-1.0); BLOOD UREA NITROGEN 13 MG/DL (7-18); CARBON DIOXIDE LEVEL 20 MEQ/L (21-32); CHLORIDE LEVEL 114 MEQ/L (98-107); GLOMERULAR FILTRATION RATE > 60.0 (>51); GLUCOSE, FASTING 109 MG/DL (70-100); MAGNESIUM LEVEL 1.8 MG/DL (1.8-2.4); POTASSIUM SERUM 3.7 MEQ/L (3.5-5.1); SODIUM LEVEL 140 MEQ/L (136-145); TOTAL PROTEIN 5.1 GM/DL (6.4-8.2)
[2021-04-14] MEDS: MULTIVITAMINS/MINERALS THERAP 1 TAB PO SCH (08:08)
[2021-04-14] MEDS: **hydrALAZINE** 10 MG TAB PO SCH ×2 (08:08→20:18)
[2021-04-14] MEDS: SPIRONOLACTONE 25 MG TAB PO SCH ×2 (08:08→20:18)
[2021-04-14] MEDS: FAMOTIDINE 20 MG TAB PO SCH (08:09)
[2021-04-14 14:00] VITALS: BP 103/64
[2021-04-14] MEDS: DICYCLOMINE 10 MG CAP PO PRN (14:44)
[2021-04-14] MEDS: ENOXAPARIN 40MG/0.4ML SYRINGE (J1650 PER 10MG) SC SCH (20:16)
[2021-04-14] MEDS: FAMOTIDINE 20 MG TAB PO PRN (20:45)
[2021-04-14 22:00] VITALS: BP 104/64
[2021-04-15] MEDS: LOPERAMIDE 2 MG CAPLET PO PRN ×6 (00:17→22:48)
[2021-04-15] MEDS: RAMELTEON 8 MG TAB (ROZEREM) PO PRN ×2 (00:19→22:48)
[2021-04-15] MEDS: KCL 20MEQ IN 0.45NS 1000ML 1,000 ML IV SCH ×4 (04:23→20:58)
[2021-04-15 06:00] VITALS: BP 127/79
[2021-04-15 07:08] LABS: HEMATOCRIT 32.6 % (36.0-47.0); HEMOGLOBIN 11.1 g/dl (12.0-15.5); MEAN CORPUSCULAR HEMOGLOBIN 30.7 pg (27.0-33.0); MEAN CORPUSCULAR VOLUME 90.3 fl (80.0-96.0); RED BLOOD COUNT 3.61 10^6/uL (4.00-5.40); WHITE BLOOD COUNT 2.7 10^3/uL (4.0-10.0)
[2021-04-15 07:09] LABS: PLATELET COUNT, AUTOMATED 170 10^3/uL (150-450)
[2021-04-15 07:43] LABS: ALBUMIN 2.4 GM/DL (3.2-5.2); ALT/SGPT 66 U/L (12-78); BILIRUBIN,TOTAL 0.6 MG/DL (0.2-1.0); BLOOD UREA NITROGEN 9 MG/DL (7-18); CALCIUM LEVEL 8.2 MG/DL (8.5-10.1); CARBON DIOXIDE LEVEL 20 MEQ/L (21-32); CHLORIDE LEVEL 112 MEQ/L (98-107); CREATININE FOR GFR 0.78 MG/DL (0.55-1.30); GLOMERULAR FILTRATION RATE > 60.0 (>51); GLUCOSE, FASTING 110 MG/DL (70-100); MAGNESIUM LEVEL 1.8 MG/DL (1.8-2.4); POTASSIUM SERUM 3.3 MEQ/L (3.5-5.1); SODIUM LEVEL 139 MEQ/L (136-145); TOTAL PROTEIN 5.3 GM/DL (6.4-8.2)
[2021-04-15 08:05] VITALS: BP 125/79
[2021-04-15] MEDS ORDERED: POTASSIUM CHLORIDE 10MEQ SR TABLET PO ONE (08:25)
[2021-04-15] MEDS: **hydrALAZINE** 10 MG TAB PO SCH ×2 (08:29→20:59)
[2021-04-15] MEDS: FAMOTIDINE 20 MG TAB PO SCH (08:29)
[2021-04-15] MEDS: SPIRONOLACTONE 25 MG TAB PO SCH ×2 (08:29→20:59)
[2021-04-15] MEDS: MULTIVITAMINS/MINERALS THERAP 1 TAB PO SCH (08:30)
[2021-04-15] MEDS ORDERED: GABAPENTIN 100 MG CAP PO SCH (09:00)
[2021-04-15] MEDS: CHOLESTYRAMINE 4 GM PWD PKT PO SCH ×2 (11:02→20:59)
[2021-04-15 14:00] VITALS: BP 112/74
[2021-04-15] MEDS: oxyBUTYnin 5 MG TAB PO PRN (14:25)
[2021-04-15] MEDS: FAMOTIDINE 20 MG TAB PO PRN (18:56)
[2021-04-15] MEDS: ENOXAPARIN 40MG/0.4ML SYRINGE (J1650 PER 10MG) SC SCH (20:59)
[2021-04-15] MEDS: GABAPENTIN 100 MG CAP PO SCH (20:59)
[2021-04-15 22:00] VITALS: BP 125/87
[2021-04-16] MEDS: KCL 20MEQ IN 0.45NS 1000ML 1,000 ML IV SCH ×3 (05:02→20:53)
[2021-04-16 05:45] VITALS: BP 122/81
[2021-04-16 08:00] VITALS: BP 127/68
[2021-04-16 08:26] LABS: HEMATOCRIT 32.3 % (36.0-47.0); HEMOGLOBIN 10.9 g/dl (12.0-15.5); MEAN CORPUSCULAR HEMOGLOBIN 30.8 pg (27.0-33.0); MEAN CORPUSCULAR HGB CONC 33.7 g/dl (32.0-36.5); MEAN CORPUSCULAR VOLUME 91.2 fl (80.0-96.0); PLATELET COUNT, AUTOMATED 166 10^3/uL (150-450); RED BLOOD COUNT 3.54 10^6/uL (4.00-5.40); WHITE BLOOD COUNT 2.8 10^3/uL (4.0-10.0)
[2021-04-16 08:43] LABS: ALBUMIN 2.3 GM/DL (3.2-5.2); ALT/SGPT 62 U/L (12-78); BILIRUBIN,TOTAL 0.4 MG/DL (0.2-1.0); BLOOD UREA NITROGEN 8 MG/DL (7-18); CALCIUM LEVEL 8.3 MG/DL (8.5-10.1); CARBON DIOXIDE LEVEL 22 MEQ/L (21-32); CHLORIDE LEVEL 113 MEQ/L (98-107); CREATININE FOR GFR 0.75 MG/DL (0.55-1.30); GLOMERULAR FILTRATION RATE > 60.0 (>51); GLUCOSE, FASTING 112 MG/DL (70-100); MAGNESIUM LEVEL 1.6 MG/DL (1.8-2.4); POTASSIUM SERUM 3.6 MEQ/L (3.5-5.1); SODIUM LEVEL 141 MEQ/L (136-145)
[2021-04-16] MEDS: SPIRONOLACTONE 25 MG TAB PO SCH ×2 (09:04→20:51)
[2021-04-16] MEDS: MULTIVITAMINS/MINERALS THERAP 1 TAB PO SCH (09:05)
[2021-04-16] MEDS: LOPERAMIDE 2 MG CAPLET PO PRN ×3 (09:05→14:35)
[2021-04-16] MEDS: FAMOTIDINE 20 MG TAB PO SCH (09:05)
[2021-04-16] MEDS: **hydrALAZINE** 10 MG TAB PO SCH ×2 (09:05→20:52)
[2021-04-16 09:40] LABS: ANISOCYTOSIS 2+; ATYPICAL LYMPH 3 % (0-5); BASOPHILS 1 % (0-1); EOSINOPHILS 7 % (0-3); LYMPHOCYTES 16 % (16-44); METAMYELOCYTES 1 % (0-0); MONOCYTES 16 % (0-5); NEUTROPHILS 54 % (28-66); PLATELET ESTIMATE NORMAL (NORMAL)
[2021-04-16] MEDS: CHOLESTYRAMINE 4 GM PWD PKT PO SCH ×3 (10:09→21:00)
[2021-04-16 14:00] VITALS: BP 128/77
[2021-04-16 17:10] LABS: CA Oxalate Dihy 10 % (.); Ca Ox Monohydrate 50 % (.); Size 6x4 mm (.)
[2021-04-16] MEDS: GABAPENTIN 100 MG CAP PO SCH (20:51)
[2021-04-16] MEDS: ENOXAPARIN 40MG/0.4ML SYRINGE (J1650 PER 10MG) SC SCH (20:51)
[2021-04-16] MEDS: LOMOTIL 2.5MG/0.025MG TABLET PO SCH (20:51)
[2021-04-16] MEDS: RAMELTEON 8 MG TAB (ROZEREM) PO PRN (21:53)
[2021-04-16 22:00] VITALS: BP 122/79
[2021-04-16] MEDS: MAG SULF 1GM/100ML (MAG RUN) 1 GM in IV 1 EA IV SCH ×2 (22:33→23:49)
[2021-04-17] VITALS (8 sets, daily range): BP systolic 111–140; BP diastolic 73–91
[2021-04-17] MEDS: SODIUM CHLORIDE 0.9% INJ 10 ML SYR IV PRN (01:49)
[2021-04-17 08:02] LABS: HEMATOCRIT 35.4 % (36.0-47.0); HEMOGLOBIN 11.8 g/dl (12.0-15.5); MEAN CORPUSCULAR HEMOGLOBIN 30.9 pg (27.0-33.0); MEAN CORPUSCULAR HGB CONC 33.3 g/dl (32.0-36.5); MEAN CORPUSCULAR VOLUME 92.7 fl (80.0-96.0); PLATELET COUNT, AUTOMATED 186 10^3/uL (150-450); RED BLOOD COUNT 3.82 10^6/uL (4.00-5.40); WHITE BLOOD COUNT 3.2 10^3/uL (4.0-10.0)
[2021-04-17 08:10] LABS: ALBUMIN 2.7 GM/DL (3.2-5.2); ALT/SGPT 70 U/L (12-78); BILIRUBIN,TOTAL 0.5 MG/DL (0.2-1.0); BLOOD UREA NITROGEN 8 MG/DL (7-18); CALCIUM LEVEL 8.3 MG/DL (8.5-10.1); CARBON DIOXIDE LEVEL 23 MEQ/L (21-32); CHLORIDE LEVEL 111 MEQ/L (98-107); CREATININE FOR GFR 0.72 MG/DL (0.55-1.30); GLOMERULAR FILTRATION RATE > 60.0 (>51); GLUCOSE, FASTING 109 MG/DL (70-100); MAGNESIUM LEVEL 2.1 MG/DL (1.8-2.4); POTASSIUM SERUM 3.7 MEQ/L (3.5-5.1); SODIUM LEVEL 143 MEQ/L (136-145); TOTAL PROTEIN 5.4 GM/DL (6.4-8.2)
[2021-04-17 08:48] LABS: ATYPICAL LYMPH 1 % (0-5); BASOPHILS 1 % (0-1); EOSINOPHILS 4 % (0-3); LYMPHOCYTES 10 % (16-44); METAMYELOCYTES 1 % (0-0); MONOCYTES 10 % (0-5); NEUTROPHILS 72 % (28-66)
[2021-04-17 08:49] LABS: ANISOCYTOSIS 2+; PLATELET ESTIMATE NORMAL (NORMAL)
[2021-04-17] MEDS ORDERED: POTASSIUM CHLORIDE 10MEQ SR TABLET PO SCH (09:00)
[2021-04-17] MEDS: LOMOTIL 2.5MG/0.025MG TABLET PO SCH ×3 (09:49→20:18)
[2021-04-17] MEDS: SPIRONOLACTONE 25 MG TAB PO SCH ×2 (09:49→20:19)
[2021-04-17] MEDS: MULTIVITAMINS/MINERALS THERAP 1 TAB PO SCH (09:49)
[2021-04-17] MEDS: GABAPENTIN 100 MG CAP PO SCH ×2 (09:49→20:19)
[2021-04-17] MEDS: FAMOTIDINE 20 MG TAB PO SCH (09:49)
[2021-04-17] MEDS: **hydrALAZINE** 10 MG TAB PO SCH ×2 (09:51→20:22)
[2021-04-17] MEDS: SODIUM CHLORIDE 0.9% INJ 10 ML SYR IV SCH (09:52)
[2021-04-17] MEDS: oxyBUTYnin 5 MG TAB PO PRN ×2 (09:56→22:54)
[2021-04-17] MEDS: CHOLESTYRAMINE 4 GM PWD PKT PO SCH ×2 (09:58→20:22)
[2021-04-17] MEDS: DICYCLOMINE 10 MG CAP PO PRN (10:26)
[2021-04-17] MEDS: ONDANSETRON 4MG/2ML VIAL IV PRN ×2 (11:10→15:44)
[2021-04-17] MEDS ORDERED: MORPHINE 4 MG/ML 1ML VIAL/SYRINGE (J2270) IV ONE (11:15)
[2021-04-17] MEDS ORDERED: ISOVUE-370 76% 100ML VIAL As Ordered ONE (11:22)
[2021-04-17] MEDS: HYDROMORPHONE HCL 0.5 MG/ 0.5 ML SYRINGE (J1170 PER 1) IV PRN ×2 (12:17→18:45)
[2021-04-17] MEDS: KCL 20MEQ in NS 1000ML 1,000 ML IV SCH ×2 (12:30→20:18)
[2021-04-17] MEDS: MORPHINE 2 MG/ML 1ML VIAL (J2270) IV PRN (14:06)
[2021-04-17] MEDS ORDERED: cefTRIAXone SOD 2 GM in D5W MINI-BAG PLUS 50 ML IV ONE (15:30)
[2021-04-17] MEDS ORDERED: CONRAY-60 60% 50ML VIAL (Q9961) As Ordered ONE (15:38)
[2021-04-17] MEDS ORDERED: LIDOCAINE 2% 100MG/5ML SDV (FOR ANES.) As Ordered ONE (16:10)
[2021-04-17] MEDS ORDERED: MIDAZOLAM INJ 2MG/2ML VIAL (J2250 PER 1MG) As Ordered ONE (16:10)
[2021-04-17] MEDS ORDERED: fentaNYL 100 MCG/2 ML INJECTION As Ordered ONE ×2 (16:10→16:54)
[2021-04-17] MEDS ORDERED: propofoL 200 MG/20 ML VIAL As Ordered ONE (16:10)
[2021-04-17] MEDS ORDERED: ROCURONIUM BROMIDE 50 MG/5 ML VIAL As Ordered ONE (16:33)
[2021-04-17] MEDS ORDERED: dexameTHASONE 4 MG/ML 1ML VIAL (J1100 PER 1MG) As Ordered ONE (16:42)
[2021-04-17] MEDS ORDERED: METOCLOPRAMIDE INJ 10MG/2ML VIAL (J2765 PER 1) As Ordered ONE (16:54)
[2021-04-17] MEDS ORDERED: ONDANSETRON 4MG/2ML VIAL As Ordered ONE (16:54)
[2021-04-17] MEDS ORDERED: SUGAMMADEX SODIUM 500 MG/5 ML VIAL (BRIDION) As Ordered ONE (16:54)
[2021-04-17] MEDS ORDERED: ONDANSETRON 4MG/2ML VIAL IV PRN (18:35)
[2021-04-17] MEDS ORDERED: fentaNYL 100 MCG/2 ML INJECTION IV PRN (18:35)
[2021-04-17] MEDS ORDERED: LR 1,000 ML IV SCH ×2 (18:35)
[2021-04-17] MEDS ORDERED: PERCOCET 5MG/325MG TAB PO PRN (18:35)
[2021-04-17] MEDS ORDERED: METOCLOPRAMIDE INJ 10MG/2ML VIAL (J2765 PER 1) IV PRN (18:35)
[2021-04-17] MEDS: ENOXAPARIN 40MG/0.4ML SYRINGE (J1650 PER 10MG) SC SCH (20:18)
[2021-04-18 02:00] VITALS: BP 102/65
[2021-04-18] MEDS: KCL 20MEQ in NS 1000ML 1,000 ML IV SCH ×3 (04:27→21:35)
[2021-04-18 06:00] VITALS: BP 115/72
[2021-04-18] MEDS: LOMOTIL 2.5MG/0.025MG TABLET PO SCH ×3 (09:00→22:11)
[2021-04-18] MEDS: CHOLESTYRAMINE 4 GM PWD PKT PO SCH ×2 (09:00→22:11)
[2021-04-18] MEDS: SODIUM CHLORIDE 0.9% INJ 10 ML SYR IV SCH (09:00)
[2021-04-18] MEDS: **hydrALAZINE** 10 MG TAB PO SCH ×2 (09:00→22:10)
[2021-04-18 09:36] LABS: BASO % 0.8 % (0.0-1.0); HEMATOCRIT 35.3 % (36.0-47.0); HEMOGLOBIN 11.7 g/dl (12.0-15.5); LYMPH # 0.5 10^3/uL (1.5-5.0); LYMPH % 13.7 % (24.0-44.0); MEAN CORPUSCULAR HGB CONC 33.1 g/dl (32.0-36.5); MEAN CORPUSCULAR VOLUME 93.6 fl (80.0-96.0); MONO # 0.6 10^3/uL (0.0-0.8); MONO % 15.8 % (2.0-8.0); NEUTROPHILS # 2.5 10^3/uL (1.5-8.5); NEUTROPHILS % 64.1 % (36.0-66.0); PLATELET COUNT, AUTOMATED 183 10^3/uL (150-450); RED BLOOD COUNT 3.77 10^6/uL (4.00-5.40); WHITE BLOOD COUNT 3.9 10^3/uL (4.0-10.0)
[2021-04-18 10:00] VITALS: BP 132/93; O2SAT 94
[2021-04-18 10:00] LABS: ALBUMIN 2.6 GM/DL (3.2-5.2); ALT/SGPT 59 U/L (12-78); BILIRUBIN,TOTAL 0.4 MG/DL (0.2-1.0); BLOOD UREA NITROGEN 8 MG/DL (7-18); CALCIUM LEVEL 8.8 MG/DL (8.5-10.1); CARBON DIOXIDE LEVEL 25 MEQ/L (21-32); CHLORIDE LEVEL 113 MEQ/L (98-107); CREATININE FOR GFR 0.87 MG/DL (0.55-1.30); GLOMERULAR FILTRATION RATE > 60.0 (>51); GLUCOSE, FASTING 123 MG/DL (70-100); MAGNESIUM LEVEL 1.8 MG/DL (1.8-2.4); POTASSIUM SERUM 3.8 MEQ/L (3.5-5.1); SODIUM LEVEL 144 MEQ/L (136-145); TOTAL PROTEIN 5.6 GM/DL (6.4-8.2)
[2021-04-18] MEDS: GABAPENTIN 100 MG CAP PO SCH ×2 (10:41→22:10)
[2021-04-18] MEDS: FAMOTIDINE 20 MG TAB PO SCH (10:41)
[2021-04-18] MEDS: SPIRONOLACTONE 25 MG TAB PO SCH ×2 (10:41→22:11)
[2021-04-18] MEDS: MULTIVITAMINS/MINERALS THERAP 1 TAB PO SCH (10:41)
[2021-04-18] MEDS: DICYCLOMINE 10 MG CAP PO PRN (10:41)
[2021-04-18] MEDS: cefTRIAXone SOD 1 GM in D5W MINI-BAG PLUS 50 ML IV SCH (13:10)
[2021-04-18 14:00] VITALS: BP 107/70
[2021-04-18 18:00] VITALS: BP 124/78
[2021-04-18] MEDS: ACETAMINOPHEN TAB 650MG DOSE (2X325MG) PO PRN ×2 (18:45→22:17)
[2021-04-18] MEDS: oxyBUTYnin 5 MG TAB PO PRN (18:50)
[2021-04-18 22:00] VITALS: BP 121/66
[2021-04-18] MEDS: ENOXAPARIN 40MG/0.4ML SYRINGE (J1650 PER 10MG) SC SCH (22:10)
[2021-04-18] MEDS: RAMELTEON 8 MG TAB (ROZEREM) PO PRN (22:11)
[2021-04-18] MEDS: FAMOTIDINE 20 MG TAB PO PRN (22:17)
[2021-04-19] MEDS: KCL 20MEQ in NS 1000ML 1,000 ML IV SCH ×3 (05:46→23:24)
[2021-04-19 06:00] VITALS: BP 140/79
[2021-04-19] MEDS: SODIUM CHLORIDE 0.9% INJ 10 ML SYR IV SCH (09:00)
[2021-04-19] MEDS: **hydrALAZINE** 10 MG TAB PO SCH ×2 (09:00→21:34)
[2021-04-19 09:40] LABS: BASO % 0.8 % (0.0-1.0); EOS # 0.1 10^3/uL (0.0-0.5); EOS % 3.4 % (0.0-3.0); HEMATOCRIT 33.7 % (36.0-47.0); HEMOGLOBIN 11.1 g/dl (12.0-15.5); LYMPH # 0.3 10^3/uL (1.5-5.0); LYMPH % 8.1 % (24.0-44.0); MEAN CORPUSCULAR HGB CONC 32.9 g/dl (32.0-36.5); MEAN CORPUSCULAR VOLUME 94.1 fl (80.0-96.0); MONO # 0.6 10^3/uL (0.0-0.8); MONO % 16.3 % (2.0-8.0); NEUTROPHILS # 2.4 10^3/uL (1.5-8.5); NEUTROPHILS % 66.6 % (36.0-66.0); PLATELET COUNT, AUTOMATED 177 10^3/uL (150-450); RED BLOOD COUNT 3.58 10^6/uL (4.00-5.40); WHITE BLOOD COUNT 3.6 10^3/uL (4.0-10.0)
[2021-04-19] MEDS: GABAPENTIN 100 MG CAP PO SCH ×2 (09:41→21:32)
[2021-04-19] MEDS: SPIRONOLACTONE 25 MG TAB PO SCH ×2 (09:41→21:31)
[2021-04-19] MEDS: MULTIVITAMINS/MINERALS THERAP 1 TAB PO SCH (09:41)
[2021-04-19] MEDS: CHOLESTYRAMINE 4 GM PWD PKT PO SCH ×2 (09:41→21:29)
[2021-04-19] MEDS: FAMOTIDINE 20 MG TAB PO SCH (09:41)
[2021-04-19] MEDS: LOMOTIL 2.5MG/0.025MG TABLET PO SCH ×3 (09:57→21:28)
[2021-04-19 10:07] LABS: CK-MB VALUE MASS < 1.0 NG/ML (<3.6); CPK CREATINE PHOSPHOKINASE 32 U/L (26-192); MB/CK RELATIVE INDEX 3.12 (< OR =4)
[2021-04-19 10:12] LABS: ALBUMIN 2.5 GM/DL (3.2-5.2); ALT/SGPT 52 U/L (12-78); BILIRUBIN,TOTAL 0.4 MG/DL (0.2-1.0); BLOOD UREA NITROGEN 9 MG/DL (7-18); CALCIUM LEVEL 8.4 MG/DL (8.5-10.1); CARBON DIOXIDE LEVEL 24 MEQ/L (21-32); CHLORIDE LEVEL 116 MEQ/L (98-107); CREATININE FOR GFR 0.75 MG/DL (0.55-1.30); FREE T4 1.54 NG/DL (0.76-1.46); GLOMERULAR FILTRATION RATE > 60.0 (>51); GLUCOSE, FASTING 151 MG/DL (70-100); MAGNESIUM LEVEL 1.6 MG/DL (1.8-2.4); POTASSIUM SERUM 3.8 MEQ/L (3.5-5.1); SODIUM LEVEL 146 MEQ/L (136-145); TOTAL PROTEIN 5.2 GM/DL (6.4-8.2)
[2021-04-19 13:20] VITALS: BP_SYST 109; BP_SYST 117; BP_SYST 130; BP_DIAS 61; BP_DIAS 77; BP_DIAS 80
[2021-04-19 14:00] VITALS: BP 112/65
[2021-04-19 14:25] VITALS: O2SAT 97
[2021-04-19] MEDS: MAG SULF 1GM/100ML (MAG RUN) 1 GM in IV 1 EA IV SCH ×2 (14:30→14:31)
[2021-04-19] MEDS: cefTRIAXone SOD 1 GM in D5W MINI-BAG PLUS 50 ML IV SCH (14:31)
[2021-04-19] MEDS: ENOXAPARIN 40MG/0.4ML SYRINGE (J1650 PER 10MG) SC SCH (21:31)
[2021-04-19 22:00] VITALS: BP 113/68
[2021-04-19] MEDS: FAMOTIDINE 20 MG TAB PO PRN (22:56)
[2021-04-19] MEDS: RAMELTEON 8 MG TAB (ROZEREM) PO PRN (23:24)
[2021-04-20 06:00] VITALS: BP 114/67
[2021-04-20 06:43] LABS: HEMATOCRIT 32.2 % (36.0-47.0); HEMOGLOBIN 10.4 g/dl (12.0-15.5); MEAN CORPUSCULAR HGB CONC 32.3 g/dl (32.0-36.5); MEAN CORPUSCULAR VOLUME 96.1 fl (80.0-96.0); PLATELET COUNT, AUTOMATED 157 10^3/uL (150-450); RED BLOOD COUNT 3.35 10^6/uL (4.00-5.40); WHITE BLOOD COUNT 2.5 10^3/uL (4.0-10.0)
[2021-04-20 07:13] LABS: ALBUMIN 2.3 GM/DL (3.2-5.2); ALT/SGPT 44 U/L (12-78); BILIRUBIN,TOTAL 0.4 MG/DL (0.2-1.0); BLOOD UREA NITROGEN 6 MG/DL (7-18); CALCIUM LEVEL 8.1 MG/DL (8.5-10.1); CARBON DIOXIDE LEVEL 23 MEQ/L (21-32); CHLORIDE LEVEL 114 MEQ/L (98-107); CREATININE FOR GFR 0.69 MG/DL (0.55-1.30); GLOMERULAR FILTRATION RATE > 60.0 (>51); GLUCOSE, FASTING 102 MG/DL (70-100); MAGNESIUM LEVEL 1.8 MG/DL (1.8-2.4); POTASSIUM SERUM 3.9 MEQ/L (3.5-5.1); SODIUM LEVEL 144 MEQ/L (136-145); TOTAL PROTEIN 5.2 GM/DL (6.4-8.2)
[2021-04-20] MEDS: KCL 20MEQ in NS 1000ML 1,000 ML IV SCH ×2 (07:33→12:15)
[2021-04-20 07:51] LABS: ATYPICAL LYMPH 2 % (0-5); BASOPHILS 2 % (0-1); EOSINOPHILS 3 % (0-3); LYMPHOCYTES 10 % (16-44); METAMYELOCYTES 2 % (0-0); MONOCYTES 10 % (0-5); NEUTROPHILS 68 % (28-66); PLASMA CELL 1 % (0-0)
[2021-04-20 07:53] LABS: ANISOCYTOSIS 2+
[2021-04-20 07:54] LABS: PLATELET ESTIMATE NORMAL (NORMAL); SCHISTOCYTES 1+
[2021-04-20] MEDS: SODIUM CHLORIDE 0.9% INJ 10 ML SYR IV SCH (09:00)
[2021-04-20] MEDS: FAMOTIDINE 20 MG TAB PO SCH (10:13)
[2021-04-20 10:16] VITALS: BP 131/80
[2021-04-20] MEDS: **hydrALAZINE** 10 MG TAB PO SCH (10:16)
[2021-04-20] MEDS: MULTIVITAMINS/MINERALS THERAP 1 TAB PO SCH (10:17)
[2021-04-20] MEDS: CHOLESTYRAMINE 4 GM PWD PKT PO SCH (10:17)
[2021-04-20] MEDS: SPIRONOLACTONE 25 MG TAB PO SCH (10:17)
[2021-04-20] MEDS: GABAPENTIN 100 MG CAP PO SCH (10:17)
[2021-04-20] MEDS: LOMOTIL 2.5MG/0.025MG TABLET PO SCH (10:22)
[2021-04-20] MEDS: SODIUM CHLORIDE 0.9% INJ 10 ML SYR IV PRN (10:54)
[2021-04-20] MEDS ORDERED: MAGN1TAB26 PO (11:42)
[2021-04-20] MEDS ORDERED: HYDR-3490 PO (11:42)
[2021-04-20] MEDS ORDERED: POTA-151 PO (11:42)
[2021-04-20] MEDS ORDERED: DICY1CAP8 PO (11:42)
[2021-04-20] MEDS ORDERED: DIPH2.5T15 PO (11:42)
[2021-04-20] MEDS ORDERED: CHOL4PW PO (11:42)
[2021-04-20 11:58] LABS: PHOSPHORUS LEVEL 3.3 MG/DL (2.5-4.9)
[2021-04-28] MEDS ORDERED: CIPR500T39 PO (11:07)
[2021-04-28] MEDS ORDERED: DICY1CAP8 PO (11:12)
[2021-04-28] MEDS ORDERED: OXYC1TAB23 PO ×2 (11:12→11:45)
[2021-05-27] MEDS ORDERED: POTA-151 PO (13:39)
[2021-05-28] MEDS ORDERED: POTA10TA17 PO (16:07)
[2021-05-29] MEDS ORDERED: POTA-151 PO (15:05)
[2021-06-18] MEDS ORDERED: DIPH2.5T15 PO (10:18)
[2021-06-18] MEDS ORDERED: OXYC1TAB23 PO ×2 (10:18→10:30)
[2021-06-18] MEDS ORDERED: METO25TA4 PO (10:18)
[2021-06-18] MEDS ORDERED: POTA10TA17 PO (10:59)
== END 2021-04-20 13:10 | disposition home or self-care (01) | DRG 443 ==
LOC: M ED 12:12 → M ED INP 12:13 → INTOOBSV 17:21 → UNDOADMOB 17:21 → M ED INP 17:21 → M MSPAV 22:57 → M ED INP 22:57 → OBSVTOIN 04-14 19:16
PROVIDERS: ADMIT Internal Medicine; ATTEND Family Medicine
PROC: 0T768DZ Dilation of Right Ureter with Intraluminal Device, Via Natural or Artificial Opening Endoscopic (ICD-10-PCS; 2021-04-10)
PROC: 0TC68ZZ Extirpation of Matter from Right Ureter, Via Natural or Artificial Opening Endoscopic (ICD-10-PCS; 2021-04-10)
PROC: 0T9B8ZZ Drainage of Bladder, Via Natural or Artificial Opening Endoscopic (ICD-10-PCS; 2021-04-17)
PROC: 0TP98DZ Removal of Intraluminal Device from Ureter, Via Natural or Artificial Opening Endoscopic (ICD-10-PCS; 2021-04-17)
PROC: 0T778DZ Dilation of Left Ureter with Intraluminal Device, Via Natural or Artificial Opening Endoscopic (ICD-10-PCS; principal; 2021-04-17 12:30)
DX: N13.2 Hydronephrosis with renal and ureteral calculous obstruction (principal); C18.9 Malignant neoplasm of colon, unspecified; Z68.42 Body mass index [BMI] 45.0-49.9, adult; I10 Essential (primary) hypertension; R11.2 Nausea with vomiting, unspecified; R00.1 Bradycardia, unspecified; E83.42 Hypomagnesemia; E66.01 Morbid (severe) obesity due to excess calories; F41.9 Anxiety disorder, unspecified; J45.909 Unspecified asthma, uncomplicated; Z92.21 Personal history of antineoplastic chemotherapy; E87.6 Hypokalemia; Z20.822 Contact with and (suspected) exposure to COVID-19; Z79.899 Other long term (current) drug therapy; Z88.1 Allergy status to other antibiotic agents; Z88.8 Allergy status to other drugs, medicaments and biological substances; Z91.040 Latex allergy status; R31.9 Hematuria, unspecified; R19.7 Diarrhea, unspecified

== ENCOUNTER → 2021-04-09 | Outpatient (CLI) | payer OTHER ==
[~2021-04-09] MED LIST changes: +ACET650T61 PO; +CLON0.5T2 PO; +DEXT1TAB15 PO; +FAMO20TA PO; +HYDR10TAB PO; +LOPE2TAB12 PO; +LORA-930 PO; +PROAAER10 INH
== END ==
LOC: M LABSMTC 11:29
PROVIDERS: ATTEND Anesthesiology
DX: Z01.818 Encounter for other preprocedural examination (principal); Z11.52 Encounter for screening for COVID-19

== ENCOUNTER 2021-05-02 18:52 | Emergency (ER) | payer OTHER ==
[~2021-05-02] VITALS: Ht 170.2 cm; Wt 138.5 kg
[~2021-05-02 18:52] MED LIST changes: +ACET650T61 PO; +CHOL4PW PO; +CIPR500T39 PO; +CLON0.5T2 PO; +DEXT1TAB15 PO; +DICY1CAP8 PO; +DIPH2.5T15 PO; +FAMO20TA PO; +HYDR10TAB PO; +LOPE2TAB12 PO; +LORA-930 PO; +MAGN1TAB26 PO; +OXYC1TAB23 PO; +POTA-151 PO; +PROAAER10 INH
[2021-05-02 18:54] VITALS: BP 158/88
[2021-05-02] MEDS ORDERED: OXYC-517 PO (19:35)
[2021-05-02] MEDS ORDERED: KETOROLAC 30 MG/ML 1ML VIAL IV ONE (22:50)
[2021-05-02] MEDS ORDERED: ONDANSETRON 4MG/2ML VIAL IV ONE (22:50)
[2021-05-02] MEDS ORDERED: MORPHINE 4 MG/ML 1ML VIAL/SYRINGE (J2270) IV PRN (22:50)
[2021-05-03 00:02] LABS: CALCIUM LEVEL 9.8 MG/DL (8.5-10.1); CREATININE FOR GFR 1.17 MG/DL (0.55-1.30); GLOMERULAR FILTRATION RATE 50.6 (>51); POTASSIUM SERUM 3.9 MEQ/L (3.5-5.1)
[2021-05-03 00:09] LABS: BASO # 0.1 10^3/uL (0.0-0.2); BASO % 0.8 % (0.0-1.0); EOS % 0.5 % (0.0-3.0); HEMATOCRIT 34.8 % (36.0-47.0); HEMOGLOBIN 11.3 g/dl (12.0-15.5); LYMPH # 0.5 10^3/uL (1.5-5.0); LYMPH % 7.2 % (24.0-44.0); MEAN CORPUSCULAR HEMOGLOBIN 30.6 pg (27.0-33.0); MEAN CORPUSCULAR HGB CONC 32.5 g/dl (32.0-36.5); MEAN CORPUSCULAR VOLUME 94.3 fl (80.0-96.0); MONO # 0.8 10^3/uL (0.0-0.8); MONO % 12.1 % (2.0-8.0); NEUTROPHILS % 77.4 % (36.0-66.0); PLATELET COUNT, AUTOMATED 270 10^3/uL (150-450); RED BLOOD COUNT 3.69 10^6/uL (4.00-5.40); WHITE BLOOD COUNT 6.5 10^3/uL (4.0-10.0)
[2021-05-03] MEDS ORDERED: KETO10TAB PO (01:08)
[2021-05-27] MEDS ORDERED: POTA-151 PO (13:39)
[2021-05-28] MEDS ORDERED: POTA10TA17 PO (16:07)
[2021-05-29] MEDS ORDERED: POTA-151 PO (15:05)
[2021-06-18] MEDS ORDERED: OXYC1TAB23 PO ×2 (10:18→10:30)
[2021-06-18] MEDS ORDERED: DIPH2.5T15 PO (10:18)
[2021-06-18] MEDS ORDERED: METO25TA4 PO (10:18)
[2021-06-18] MEDS ORDERED: POTA10TA17 PO (10:59)
== END 2021-05-03 01:27 | disposition home or self-care (01) ==
LOC: M ED 18:52
DX: R10.9 Unspecified abdominal pain (principal); G89.18 Other acute postprocedural pain; Z85.038 Personal history of other malignant neoplasm of large intestine; Z87.442 Personal history of urinary calculi; Z79.899 Other long term (current) drug therapy; Z88.1 Allergy status to other antibiotic agents; Z88.8 Allergy status to other drugs, medicaments and biological substances; Z91.040 Latex allergy status
CPT/HCPCS: 74176; 80048; 85025; 87086; 96374; 96375; 99283; J1885; J2405

== ENCOUNTER → 2021-07-31 | Outpatient (CLI) | payer OTHER ==
[~2021-07-31] MED LIST changes: +FLUO1OPD OU; +KETO10TAB PO; +METO25TA4 PO; +POTA10TA17 PO
== END ==
LOC: M ONCR 10:29
PROVIDERS: ATTEND General Practice
DX: C20 Malignant neoplasm of rectum (principal); Z88.1 Allergy status to other antibiotic agents; Z88.8 Allergy status to other drugs, medicaments and biological substances; Z91.040 Latex allergy status; Z92.21 Personal history of antineoplastic chemotherapy; Z92.3 Personal history of irradiation

== ENCOUNTER → 2021-08-25 | Outpatient (REF) | payer OTHER | LOC: M SFHCDERM 17:22 | PROVIDERS: ATTEND Nurse Practitioner Family | DX: D48.9 Neoplasm of uncertain behavior, unspecified (principal); D22.30 Melanocytic nevi of unspecified part of face ==

== ENCOUNTER → 2021-09-03 | Outpatient (CLI) | payer OTHER | LOC: M ONCR 15:41 | PROVIDERS: ATTEND General Practice | DX: C20 Malignant neoplasm of rectum (principal); K62.5 Hemorrhage of anus and rectum; K64.8 Other hemorrhoids; R19.7 Diarrhea, unspecified ==

== ENCOUNTER → 2021-10-30 | Outpatient (CLI) | payer OTHER | LOC: M LABSMTC 09:25 | PROVIDERS: ATTEND Anesthesiology | DX: Z01.812 Encounter for preprocedural laboratory examination (principal); Z11.52 Encounter for screening for COVID-19 ==

== ENCOUNTER 2021-12-11 08:39 | Day surgery (SDC) | payer OTHER ==
[~2021-12-11] VITALS: Ht 170.2 cm; Wt 140.7 kg
[~2021-12-11 08:39] MED LIST changes: +NS 1,000 ML IV ONE
[2021-12-11] MEDS ORDERED: propofoL 200 MG/20 ML VIAL As Ordered ONE (10:10)
[2021-12-11 10:55] VITALS: BP 129/88
== END 2021-12-11 11:09 | disposition home or self-care (01) ==
LOC: M OPP 08:39
PROVIDERS: ATTEND Internal Medicine Gastroenterology
DX: K63.89 Other specified diseases of intestine (principal); K62.89 Other specified diseases of anus and rectum; Z85.038 Personal history of other malignant neoplasm of large intestine; Z08 Encounter for follow-up examination after completed treatment for malignant neoplasm; I10 Essential (primary) hypertension; Z87.19 Personal history of other diseases of the digestive system; Z80.1 Family history of malignant neoplasm of trachea, bronchus and lung; Z80.3 Family history of malignant neoplasm of breast; Z80.42 Family history of malignant neoplasm of prostate; Z80.51 Family history of malignant neoplasm of kidney; Z87.891 Personal history of nicotine dependence; Z79.51 Long term (current) use of inhaled steroids; Z91.040 Latex allergy status; Z88.1 Allergy status to other antibiotic agents; Z88.8 Allergy status to other drugs, medicaments and biological substances

== ENCOUNTER → 2022-01-30 | Outpatient (CLI) | payer OTHER ==
[~2022-01-30] MED LIST changes: -NS 1,000 ML IV ONE; +POTA-150 PO; -POTA10TA17 PO
== END ==
LOC: M ONCR 11:18
PROVIDERS: ATTEND General Practice
DX: Z08 Encounter for follow-up examination after completed treatment for malignant neoplasm (principal); Z85.040 Personal history of malignant carcinoid tumor of rectum; Z79.51 Long term (current) use of inhaled steroids; Z79.899 Other long term (current) drug therapy; Z88.1 Allergy status to other antibiotic agents; Z88.8 Allergy status to other drugs, medicaments and biological substances; Z91.040 Latex allergy status; Z92.21 Personal history of antineoplastic chemotherapy; Z92.3 Personal history of irradiation

== ENCOUNTER → 2022-02-06 | Outpatient (REF) | payer OTHER | LOC: M PLALAB 12:54 | PROVIDERS: ATTEND Advanced Practice Midwife | DX: N89.8 Other specified noninflammatory disorders of vagina (principal); Z90.710 Acquired absence of both cervix and uterus; R87.610 Atypical squamous cells of undetermined significance on cytologic smear of cervix (ASC-US) ==

== ENCOUNTER → 2022-02-06 | Outpatient (CLI) | payer OTHER | LOC: M WHC 11:22 | PROVIDERS: ATTEND Advanced Practice Midwife | DX: Z12.31 Encounter for screening mammogram for malignant neoplasm of breast (principal) ==

== ENCOUNTER → 2022-02-11 | Outpatient (CLI) | payer OTHER ==
[~2022-02-11] MED LIST changes: +GASTROGRAFIN SOLUTION 30ML (Q9963) As Ordered ONE; +ISOVUE-370 76% 100ML VIAL As Ordered ONE
== END ==
LOC: M RAD 12:49
PROVIDERS: ATTEND Internal Medicine
DX: C21.0 Malignant neoplasm of anus, unspecified (principal); Q61.02 Congenital multiple renal cysts; K43.9 Ventral hernia without obstruction or gangrene
CPT/HCPCS: 71260; 74177; Q9963; Q9967

== ENCOUNTER → 2022-04-22 | Outpatient (CLI) | payer OTHER ==
[~2022-04-22] MED LIST changes: -GASTROGRAFIN SOLUTION 30ML (Q9963) As Ordered ONE; -ISOVUE-370 76% 100ML VIAL As Ordered ONE; +PROHANCE 279.3MG/ML 15ML VIAL ONE; +PROHANCE 279.3MG/ML 5ML VIAL ONE
== END ==
LOC: M PLAIMG 04-20 10:16
PROVIDERS: ATTEND Internal Medicine Medical Oncology
DX: C20 Malignant neoplasm of rectum (principal); K76.0 Fatty (change of) liver, not elsewhere classified; N28.1 Cyst of kidney, acquired; R16.0 Hepatomegaly, not elsewhere classified
CPT/HCPCS: 72197; 74183; A9576

== ENCOUNTER → 2022-07-29 | Outpatient (CLI) | payer OTHER ==
[~2022-07-29] MED LIST changes: +LINZ145C PO; -PROHANCE 279.3MG/ML 15ML VIAL ONE; -PROHANCE 279.3MG/ML 5ML VIAL ONE
== END ==
LOC: M ONCR 11:16
PROVIDERS: ATTEND General Practice
DX: C20 Malignant neoplasm of rectum (principal); Z79.899 Other long term (current) drug therapy; Z88.1 Allergy status to other antibiotic agents; Z88.8 Allergy status to other drugs, medicaments and biological substances; Z91.040 Latex allergy status; Z92.21 Personal history of antineoplastic chemotherapy; Z92.29 Personal history of other drug therapy; Z92.3 Personal history of irradiation

== ENCOUNTER → 2022-08-20 | Outpatient (CLI) | payer OTHER ==
[~2022-08-20] MED LIST changes: +PROHANCE 279.3MG/ML 15ML VIAL ONE; +PROHANCE 279.3MG/ML 5ML VIAL ONE
== END ==
LOC: M PLAIMG 12:08
PROVIDERS: ATTEND Internal Medicine
DX: C20 Malignant neoplasm of rectum (principal)

== ENCOUNTER → 2022-11-13 | Outpatient (CLI) | payer OTHER ==
[~2022-11-13] MED LIST changes: +AZIT500T5 PO; -LOSA100T45 PO; +LOSA100T46 PO
== END ==
LOC: M PLAIMG 10:01
PROVIDERS: ATTEND Nurse Practitioner
DX: C20 Malignant neoplasm of rectum (principal); R16.0 Hepatomegaly, not elsewhere classified; K76.0 Fatty (change of) liver, not elsewhere classified; D35.01 Benign neoplasm of right adrenal gland; N28.1 Cyst of kidney, acquired; Z92.21 Personal history of antineoplastic chemotherapy
CPT/HCPCS: 72197; 74183; A9576

== ENCOUNTER → 2022-12-29 | Outpatient (CLI) | payer OTHER ==
[~2022-12-29] VITALS: Ht 172.7 cm; Wt 149.0 kg
[~2022-12-29] MED LIST changes: +EQL50TAB2 PO; -LIDO1CRE42 TOP; +LIDO30CR18 TOP; +LIDOCAINE W/EPINEPHRINE 1% 20ML VIAL As Ordered ONE; +MIDAZOLAM INJ 2MG/2ML VIAL As Ordered ONE; +NS 1,000 ML IV SCH; -PROHANCE 279.3MG/ML 15ML VIAL ONE; -PROHANCE 279.3MG/ML 5ML VIAL ONE; +ceFAZolin 2 GM/D5W 50 ML IV BAG As Ordered ONE; +ceFAZolin SOD 2 GM in IV 1 EA IV ONE; +fentaNYL 100 MCG/2 ML INJECTION As Ordered ONE
[2022-12-29 11:55] VITALS: TEMP 97.8
[2022-12-29 13:11] LABS: INR 0.9; PROTHROMBIN TIME 12.3 SECONDS (12.5-14.5)
[2022-12-29 13:12] LABS: PARTIAL THROMBOPLASTIN TIME 26.4 SECONDS (24.8-34.2)
[2022-12-29 17:05] VITALS: BP 116/59; O2SAT 93
== END ==
LOC: M IRPRO 11:45
PROVIDERS: ATTEND Nurse Practitioner
DX: C20 Malignant neoplasm of rectum (principal)
CPT/HCPCS: 36590; 85610; 85730; 99152; 99153; J0690; J2250; J3010

== ENCOUNTER → 2023-05-14 | Outpatient (CLI) | payer MEDICARE, OTHER ==
[~2023-05-14] MED LIST changes: +GASTROGRAFIN SOLUTION 30ML As Ordered ONE; +ISOVUE-370 76% 100ML VIAL As Ordered ONE; -LIDOCAINE W/EPINEPHRINE 1% 20ML VIAL As Ordered ONE; +LORA-1041 PO; -LORA-674 PO; -MIDAZOLAM INJ 2MG/2ML VIAL As Ordered ONE; -NS 1,000 ML IV SCH; -ceFAZolin 2 GM/D5W 50 ML IV BAG As Ordered ONE; -ceFAZolin SOD 2 GM in IV 1 EA IV ONE; -fentaNYL 100 MCG/2 ML INJECTION As Ordered ONE
== END ==
LOC: M RAD 11:38
PROVIDERS: ATTEND Nurse Practitioner
DX: C20 Malignant neoplasm of rectum (principal); R16.2 Hepatomegaly with splenomegaly, not elsewhere classified; K76.0 Fatty (change of) liver, not elsewhere classified
CPT/HCPCS: 71260; 74177; Q9963; Q9967

== ENCOUNTER → 2023-06-11 | Outpatient (CLI) | payer OTHER ==
[~2023-06-11] MED LIST changes: -GASTROGRAFIN SOLUTION 30ML As Ordered ONE; +HYDR-161 PO; -HYDR10TAB PO; -ISOVUE-370 76% 100ML VIAL As Ordered ONE; +MAGN200T10
== END ==
LOC: M WHC 13:12
PROVIDERS: ATTEND Advanced Practice Midwife
DX: Z12.31 Encounter for screening mammogram for malignant neoplasm of breast (principal)

== ENCOUNTER → 2024-01-12 | Outpatient (REF) | payer MEDICARE ==
[~2024-01-12] MED LIST changes: +DIPH1TAB81 PO; -DIPH2.5T15 PO; -HYDR-3910 PO; +HYDR25TA87 PO; -KLON0.5T PO; +KLON0.5T8 PO; +NOXI1TAB PO
== END ==
LOC: M SFHCWAGY 09:38
PROVIDERS: ATTEND Advanced Practice Midwife
DX: N95.0 Postmenopausal bleeding (principal)

== ENCOUNTER → 2024-02-24 | Outpatient (CLI) | payer MEDICARE, MEDICAID ==
[~2024-02-24] MED LIST changes: +ESTR0.1C5
[2024-02-24 11:25] LABS: BASO # 0.1 10^3/uL (0.0-0.2); BASO % 1.1 % (0.0-1.0); EOS # 0.1 10^3/uL (0.0-0.5); EOS % 2.4 % (0.0-3.0); HEMATOCRIT 43.7 % (36.0-47.0); HEMOGLOBIN 14.4 g/dl (12.0-15.5); LYMPH # 0.9 10^3/uL (1.5-5.0); LYMPH % 20.3 % (24.0-44.0); MEAN CORPUSCULAR VOLUME 84.9 fl (80.0-96.0); MONO # 0.6 10^3/uL (0.0-0.8); MONO % 13.7 % (2.0-8.0); NEUTROPHILS # 2.8 10^3/uL (1.5-8.5); NEUTROPHILS % 61.8 % (36.0-66.0); PLATELET COUNT, AUTOMATED 219 10^3/uL (150-450); RED BLOOD COUNT 5.15 10^6/uL (4.00-5.40); WHITE BLOOD COUNT 4.6 10^3/uL (4.0-10.0)
[2024-02-24 12:03] LABS: ALBUMIN 3.7 G/DL (3.2-5.2); ALKALINE PHOSPHATASE 92 U/L (46-116); ALT/SGPT 45 U/L (7.0-40); AST/SGOT 32 U/L (<34); BILIRUBIN,TOTAL 0.4 MG/DL (0.3-1.2); BLOOD UREA NITROGEN 16 MG/DL (9-23); CALCIUM LEVEL 9.8 MG/DL (8.3-10.6); CARBON DIOXIDE LEVEL 29 MMOL/L (20-31); CHLORIDE LEVEL 105 MMOL/L (98-107); GLOMERULAR FILTRATION RATE > 60.0 (>45); GLUCOSE, FASTING 98 MG/DL (74-106); SODIUM LEVEL 139 MMOL/L (136-145); TOTAL PROTEIN 7.3 G/DL (5.7-8.2)
[2024-02-24 12:07] LABS: CARCINOEMBRYONIC ANTIGEN < 2.0 NG/ML (<2.5)
== END ==
LOC: M LAB 10:18
PROVIDERS: ATTEND Internal Medicine Hematology & Oncology
DX: C18.9 Malignant neoplasm of colon, unspecified (principal)

== ENCOUNTER 2024-07-04 09:41 | Day surgery (SDC) | payer MEDICARE, MEDICAID ==
[~2024-07-04] VITALS: Ht 170.2 cm; Wt 147.9 kg
[~2024-07-04 09:41] MED LIST changes: +ALBU8.5H; +LEVO25TA5 PO; +MULT-90 PO; +TAMS1CAP17 PO
[2024-07-04] MEDS ORDERED: propofoL 200 MG/20 ML VIAL As Ordered ONE (11:09)
[2024-07-04] MEDS ORDERED: LIDOCAINE 2% 100MG/5ML SDV (FOR ANES.) As Ordered ONE (11:09)
[2024-07-04 11:25] VITALS: TEMP 97.6
[2024-07-04 11:45] VITALS: BP 133/84; O2SAT 94
== END 2024-07-04 11:53 | disposition home or self-care (01) ==
LOC: M OPP 09:41
PROVIDERS: ATTEND Internal Medicine Gastroenterology
DX: K52.9 Noninfective gastroenteritis and colitis, unspecified (principal); K62.89 Other specified diseases of anus and rectum; K62.7 Radiation proctitis; Z85.048 Personal history of other malignant neoplasm of rectum, rectosigmoid junction, and anus; Z88.1 Allergy status to other antibiotic agents; Z88.8 Allergy status to other drugs, medicaments and biological substances; Z91.040 Latex allergy status; Z79.899 Other long term (current) drug therapy; J45.909 Unspecified asthma, uncomplicated; Z86.711 Personal history of pulmonary embolism

== ENCOUNTER 2024-12-21 10:05 | Day surgery (SDC) | payer MEDICARE, MEDICAID ==
[~2024-12-21] VITALS: Ht 170.2 cm; Wt 147.4 kg
[~2024-12-21 10:05] MED LIST changes: -EQL50TAB2 PO; -FLOM0.4C39 PO; +NYST1POW3; +TAMS-18 PO; +VITA1TAB82 PO
[2024-12-21] MEDS ORDERED: LIDOCAINE 2% 100 MG/5 ML SDV (FOR ANES.) As Ordered ONE (11:44)
[2024-12-21 12:33] VITALS: TEMP 97
[2024-12-21 12:50] VITALS: BP 143/69; O2SAT 93
== END 2024-12-21 13:00 | disposition home or self-care (01) ==
LOC: M OPP 10:05
PROVIDERS: ATTEND Internal Medicine Gastroenterology
DX: K62.89 Other specified diseases of anus and rectum (principal); K62.7 Radiation proctitis; K52.0 Gastroenteritis and colitis due to radiation; K56.699 Other intestinal obstruction unspecified as to partial versus complete obstruction; K64.8 Other hemorrhoids; Z85.048 Personal history of other malignant neoplasm of rectum, rectosigmoid junction, and anus; R10.13 Epigastric pain; Q40.2 Other specified congenital malformations of stomach; Z88.1 Allergy status to other antibiotic agents; Z88.8 Allergy status to other drugs, medicaments and biological substances; Z91.040 Latex allergy status; Z79.899 Other long term (current) drug therapy; J45.909 Unspecified asthma, uncomplicated; Z86.711 Personal history of pulmonary embolism
CPT/HCPCS: 43235; 45380; 88305; J3010

== ENCOUNTER → 2025-01-23 | Outpatient (CLI) | payer MEDICARE, MEDICAID ==
[~2025-01-23] MED LIST changes: +PROHANCE 279.3MG/ML 15ML VIAL ONE; +PROHANCE 279.3MG/ML 5ML VIAL ONE
== END ==
LOC: M PLAIMG 10:12
PROVIDERS: ATTEND Internal Medicine Medical Oncology
DX: C20 Malignant neoplasm of rectum (principal)
CPT/HCPCS: 72197; A9576

== ENCOUNTER → 2025-05-03 | Outpatient (CLI) | payer MEDICARE, MEDICAID ==
[~2025-05-03] MED LIST changes: +CAPE150T18 PO; +ISOVUE-370 76% 100 ML VIAL As Ordered ONE; -PROHANCE 279.3MG/ML 15ML VIAL ONE; -PROHANCE 279.3MG/ML 5ML VIAL ONE; -XELO150T PO
== END ==
LOC: M RAD 12:45
PROVIDERS: ATTEND Internal Medicine Medical Oncology
DX: C20 Malignant neoplasm of rectum (principal); K76.0 Fatty (change of) liver, not elsewhere classified; N28.1 Cyst of kidney, acquired; K57.50 Diverticulosis of both small and large intestine without perforation or abscess without bleeding; K42.9 Umbilical hernia without obstruction or gangrene; K43.9 Ventral hernia without obstruction or gangrene; N13.2 Hydronephrosis with renal and ureteral calculous obstruction
CPT/HCPCS: 71260; 74177; Q9967